=== PATIENT | female | born 1960 | race Caucasian/White ===

== ENCOUNTER 2020-02-02 22:19 | Observation (INO) | payer SELFPAY ==
[2020-02-02 22:21] VITALS: BP 146/96; PULSE 74; RESP 18; TEMP 36.6; O2SAT 95; BMI 29.7
--- NOTE | 2020-02-02 22:31 | XR_ITS ---
WS: [id number] CHEST, 1 view. HISTORY: Chest pain COMPARISON: 08/05/2019 Prior CABG. Hyperinflated lungs. No pneumonia. Normal vasculature. No pleural effusion or pneumothorax. Cardiac size: Normal. Mediastinum/Aorta: Mild atherosclerosis aorta. No osseous abnormality seen. XR/XR chest 1V [id number] IMPRESSION: Partially calcified aorta and prior CABG.
--- NOTE | 2020-02-02 22:32 | ECG_ITS ---
Measurements Intervals [place] Rate: 70 P: 69 GA: 143 QRS: 60 QRSD: 104 T: -32 QT: 428 QTc: 462 SINUS RHYTHM INCOMPLETE RIGHT BUNDLE BRANCH BLOCK [90+ ms QRS DURATION, TERMINAL R IN V1/V2, 40+ ms S IN I/aVL/V4/V5/V6] INFERIOR MYOCARDIAL INFARCTION [40+ ms Q WAVE AND/OR ST/T ABNORMALITY IN II/aVF II/aVF], OF INDETERMINATE AGE INTERPRETATION BASED ON A DEFAULT AGE OF 40 YEARS Compared to ECG 08/05/2019 17:54:16 Sinus bradycardia no longer present Myocardial infarct finding still present Electronically Signed On 02-03-2020 11:47:28 CDT by Marquise Shannon M.D. [id number]
[2020-02-02 23:02] VITALS: RESP 20
[2020-02-02] MEDS: morphine 4 mg/mL SDV 1 mL IVP (23:02)
[2020-02-02] MEDS: ondansetron 2 mg/ML SDV 2 mL 4 MG IVP (23:03)
[2020-02-02] MEDS: nitroglycerin 0.4 mg sublingual Tablet SUBLINGUAL (23:03)
--- NOTE | 2020-02-02 23:04 | ED_ITS ---
HPI - SOB/Dyspnea General: Chief Complaint: Shortness of Breath/Dyspnea Stated Complaint: cp Time Seen by Provider: 02/02/20 22:31 History of Present Illness: HPI Narrative: Ro is a 59-year-old female who comes in complaining of pain in her back and down her left arm with associated shortness of breath. She also has associated nausea with mild flush type feeling but no true diaphoresis. The patient states the symptoms are similar to when she is had a heart attack in the past. She was at home resting in her bed when the symptoms began. The symptoms have been going on for less than an hour in total. She describes the pain as a dull ache. She took 2 nitroglycerin at home with resolution of her symptoms but after a short amount of time the symptoms have returned. The patient denies cough, fever, vomiting, syncope or near syncope. She states any kind of exertion does make her symptoms worse. Associated symptoms: Reports chest pain and nausea; Deny abdominal pain, chest congestion, diaphoresis, dizziness, extremity pain, fever(s), hemoptysis, lightheadedness, orthopnea, palpitations, polydipsia, polyuria, syncope or vomiting Review of Systems Const: Denies: fever(s), chills, body aches, fatigue, malaise, night sweats or diaphoresis Eyes: Denies: change in vision, blurry vision or blind spots ENMT: Denies: throat pain, odynophagia, hoarseness, ear or mastoid pain, ear discharge, change in hearing or nasal discharge Card: Reports: chest pain; Denies: palpitations, irregular heart rhythm, lightheadedness, syncope, pre- syncope, dyspnea on exertion or orthopnea Resp: Reports: dyspnea; Denies: productive cough, non-productive cough, wheezing, hemoptysis or chest congestion GI: Reports: nausea; Denies: abdominal pain, vomiting, hematemesis, coffee ground emesis, heartburn, diarrhea, constipation, GI cramping, hematochezia or melena : Denies: flank pain, dysuria, urinary frequency, urinary urgency, oliguria, urinary incontinence or hematuria Musc: Denies: neck pain, back pain, extremity pain, extremity swelling, joint pain, joint swelling, joint redness, joint warmth or joint stiffness Skin/Breast: Denies: rash, pruritus, erythema, skin tenderness or jaundice Neuro: Denies: headache(s), numbness in extremities, weakness in extremities, sensory changes, lack of coordination, difficulty walking, dizziness, vertigo, confusion or Slurred speech present Endo: Denies: polyuria, polydipsia, tired all the time, cold intolerance, excessive sweating, flushing, hot flashes or heat intolerance Saurabh/Lymph: Denies: easy bruising, easy bleeding, petechiae, purpura or enlarged lymph nodes All/Imm: Denies: urticaria, throat swelling, tongue swelling, facial swelling or acute wheezing PFSH ED PFSH: Medical History Anxiety neurosis ASHD (arteriosclerotic heart disease) Carotid stenosis, bilateral CVA (cerebral vascular accident) HTN (hypertension) Hyperlipidemia Migraine headache Myocardial infarction Surgical History S/P appendectomy S/P CABG (coronary artery bypass graft) Four-vessel bypass June 2018 [facility] This included a left internal mammary to the LAD and single vein graft to the circumflex, right coronary and diagonal branch. 4 weeks later she had a myocardial infarction which involve closure of the graft to the circumflex In September 2018 coronary angiography revealed [place] circumflex occlusion with good collateral blood flow S/P hysterectomy Family History Father Cancer LUNG Other CAD (coronary artery disease) Hypertension Social History Smoking and tobacco status: light tobacco smoker cigarettes [ Other cigarette details: 1 to 2 cigarettes a day ] Alcohol intake: never Substance/Drug Use: never Household members: spouse and family Housing: House Marital status: Physical Exam Const: COMMON NORMALS: no acute distress, patient oriented x3, no limitations, healthy appearing and well nourished EXAM LIMITATIONS: no altered mental status GENERAL APPEARANCE: cooperative, well kempt and well developed HENMT: COMMON NORMALS: normocephalic, atraumatic, hearing grossly normal bilaterally, external ears normal, EAC's normal, Normal external nose present and moist oral mucous membranes HEAD & SCALP: normal to inspection, normocephalic and atraumatic FACE & SINUS: normal facial exam and face symmetric NOSE: Normal external nose present and Normal nares present EXTERNAL EAR: Yes external ears normal EXTERNAL AUDITORY CANAL: EAC's normal MOUTH: Normal oral and palatal mucosa present, lip normal and tongue normal Eye: COMMON NORMALS: Equal, round and reactive pupils present, EOMs intact bilaterally, conjunctivae normal and no scleral icterus GENERAL EYE: appearance normal, both eyes and all related structures ALIGNMENT: Yes alignment normal PERIORBITAL: periorbital findings normal EYELID: eyelids normal CONJUNCTIVA: Yes conjunctivae normal SCLERA: sclerae normal PUPIL: Yes Equal, round and reactive pupils present Neck/C-Spine: COMMON NORMALS: full ROM, no lymphadenopathy, supple, no meningeal signs and no JVD GENERAL: Yes normal visual inspection and Yes trachea midline CERVICAL SPINE: Yes cervical ROM normal Chest: COMMONS NORMALS: normal inspection of the chest and normal palpation of entire chest wall Resp: COMMON NORMALS: normal respiratory effort, No retractions, No use of accessory muscles and clear to auscultation bilaterally EFFORT & INSPECTION: Yes able to speak in complete sentences AUSCULTATION: clear to auscultation bilaterally, no crackles, no rales, no rhonchi and no wheezes Cardio: COMMON NORMALS: no JVD, regular rate, regular rhythm, S1 normal heart sound present, S2 normal heart sound present, No gallops present (Cardio), No clicks present (Cardio), No murmurs present (Cardio) and No rub (Cardio) RATE: regular rate RHYTHM: regular rhythm HEART SOUNDS: S1 normal heart sound present, S2 normal heart sound present, no click, no gallops, no murmurs and no rubs GI: COMMON NORMALS: Soft to palpation, non-tender, No hepatosplenomegaly present and no masses PALPATION: Yes Soft to palpation, No Tenderness to palpation present (GI), No Guarding due to palpation present (GI), No Rigid due to palpation, Yes No hepatosplenomegaly present, No Hernia present, No Palpable mass present and No Pulsatile mass present : COMMON NORMALS: Yes no CVA tenderness BLADDER/KIDNEY EXAM: Yes no CVA tenderness EXTERNAL FEMALE EXAM: No Hernia present Back/Pelvis: COMMON NORMALS: no CVA tenderness, thoracic and lumbar spine normal to inspection, no thoracic nor lumbar tenderness and thoraco-lumbar ROM normal Extremity: COMMON NORMALS: normal to inspection, full ROM, capillary refill normal, no joint enlargement, no clubbing, cyanosis or edema and no calf tenderness Neuro: COMMON NORMALS: patient oriented x3, CN's II-XII intact bilaterally, moves all extremities, no focal motor deficits and no sensory deficits noted MENINGEAL SIGNS: Yes no meningeal signs SPEECH: speech normal Psych: COMMON NORMALS: mental status grossly normal, Normal thought process present, cooperative, normal affect, speech normal and activity/motor behavior normal APPEARANCE: Yes well kempt SPEECH: Yes normal speech THOUGHT PROCESS: Normal thought process present Skin: COMMON NORMALS: no rashes or lesions noted, turgor normal, no jaundice, no petechiae and no mottling GENERAL SKIN EXAM: no rashes or lesions noted and turgor normal Course Vital Signs: Vital signs: Vital Signs Temperature 97.5 F L 02/03/20 02:07 Pulse Rate 53 L 02/03/20 02:07 Respiratory Rate 15 02/03/20 02:07 Blood Pressure 151/88 02/03/20 02:07 Pulse Oximetry 96 02/03/20 02:07 MDM - SOB/Dyspnea MDM Narrative: Medical decision making narrative: The case was reviewed with Dr. Kelly, he agrees to see evaluate the patient for possible admission. Patient is continued to have chest pain despite a recent bypass surgery. Believe she should formally be ruled out and possibly a stress test but at this is not positive other causes of her pain may need to be evaluated. Lab Data: Attestation: I reviewed the patient's lab results. Labs: Lab Results 02/02/20 02/02/20 02/02/20 Range/Units 23:00 23:00 23:00 WBC 8.1 (4.0-10.0) 10^3/ uL RBC 5.25 (4.1-5.3) 10^6/u L Hgb 15.5 H (11.5-15.3) g/dL Hct 47.4 H (37.0-47.0) % MCV 90.3 (81-99) fL MCH 29.5 (28.0-34.0) pg MCHC 32.7 (30.0-36.0) g/dL RDW 12.8 (12.1-15.1) % Plt Count 247 (130-400) 10^3/c mm MPV 10.0 (7.4-10.4) fL Neut % (Auto) 61.7 % Lymph % (Auto) 26.0 % [place] % (Auto) 10.0 % Eos % (Auto) 1.6 % Baso % (Auto) 0.5 % Neut # (Auto) 5.0 (1.8-7.7) 10^3/u L Lymph # (Auto) 2.1 (0.8-4.8) 10^3/u L [place] # (Auto) 0.8 (0.2-0.9) 10^3/u L Eos # (Auto) 0.1 (0.0-0.8) 10^3/u L Baso # (Auto) 0.0 (0.0-0.1) 10^3/u L Nucleated RBC % (a uto) 0 % Nucleated RBCs # 0.0 /100WBC PT 13.20 (10.5-13.3) SECO NDS INR 0.97 (0.8-1.2) Sodium 140 (136-145) mmol/L Potassium 4.1 (3.5-5.1) mmol/L Chloride 101 (98-107) mmol/L Carbon Dioxide 26 (22-29) mmol/L Anion Gap 17.1 (5-19) BUN 15 (6-20) mg/dL Creatinine 1.0 H (0.5-0.9) mg/dL GFR Calculation 56.7 L (90-130) mL/min Glucose 89 (65-115) mg/dL Calculated Osmolal ity 286 (285-295) mOsm/k g Calcium 9.6 (8.5-10.5) mg/dL Magnesium 2.1 (1.7-2.3) mg/dL Total Bilirubin 0.4 (0.15-1.2) mg/dL AST 18 (0-32) U/L ALT 15 (0-33) U/L Alkaline Phosphata se 86 (35-105) IU/L Troponin T Baselin e (0-10) ng/mL NT-Pro-B Natriuret Pep 518 H (0-125) pg/mL Total Protein 7.2 (6.6-8.7) g/dL Albumin 4.4 (3.5-5.2) g/dL Globulin 2.8 (1.3-4.6) g/dL Lipase 48 (13-60) U/L / Range/Units 23:00 WBC (4.0-10.0) 10^3/ uL RBC (4.1-5.3) 10^6/u L Hgb (11.5-15.3) g/dL Hct (37.0-47.0) % MCV (81-99) fL MCH (28.0-34.0) pg MCHC (30.0-36.0) g/dL RDW (12.1-15.1) % Plt Count (130-400) 10^3/c mm MPV (7.4-10.4) fL Neut % (Auto) % Lymph % (Auto) % [place] % (Auto) % Eos % (Auto) % Baso % (Auto) % Neut # (Auto) (1.8-7.7) 10^3/u L Lymph # (Auto) (0.8-4.8) 10^3/u L [place] # (Auto) (0.2-0.9) 10^3/u L Eos # (Auto) (0.0-0.8) 10^3/u L Baso # (Auto) (0.0-0.1) 10^3/u L Nucleated RBC % (a uto) % Nucleated RBCs # /100WBC PT (10.5-13.3) SECO NDS INR (0.8-1.2) Sodium (136-145) mmol/L Potassium (3.5-5.1) mmol/L Chloride (98-107) mmol/L Carbon Dioxide (22-29) mmol/L Anion Gap (5-19) BUN (6-20) mg/dL Creatinine (0.5-0.9) mg/dL GFR Calculation (90-130) mL/min Glucose (65-115) mg/dL Calculated Osmolal ity (285-295) mOsm/k g Calcium (8.5-10.5) mg/dL Magnesium (1.7-2.3) mg/dL Total Bilirubin (0.15-1.2) mg/dL AST (0-32) U/L ALT (0-33) U/L Alkaline Phosphata se (35-105) IU/L Troponin T Baselin e 10 (0-10) ng/mL NT-Pro-B Natriuret Pep (0-125) pg/mL Total Protein (6.6-8.7) g/dL Albumin (3.5-5.2) g/dL Globulin (1.3-4.6) g/dL Lipase (13-60) U/L Imaging Data^: CXR: Attestation: I personally reviewed and interpreted this imaging study as follows: My impression: No acute cardiopulmonary findings. EKG Data^: EKG 1: Attestation: I personally reviewed and interpreted this EKG as follows: EKG Interpretation Date: 02/02/20 EKG interpretation time: 22:29 Interpretation: Normal sinus rhythm at 70 beats a minute, Q waves inferiorly, subtle ST segment depression in 2, 3, aVF and V6. Incomplete right bundle branch block. Normal axis. Findings are similar to previous. Discharge Plan Discharge Patient Disposition: Placed in Observation Admit Provider: Melva Krishnan Clinical Impression: Chest pain Qualifiers: Chest pain type: unspecified Qualified Code(s): R07.9 - Chest pain, unspecified Condition: Stable Referrals: Shanti Foster, BEHAVIORAL HEALTH ASSISTANT, [place] [Primary Care Provider] - Discharge Date/Time: 02/03/20 02:05 Coding Level of Care Code ED Wet Crown Blocking Operator for Chg Fwd Exam Comprehensive
[2020-02-02 23:06] LABS: Basophils % 0.5 %; Eosinophils # 0.1 10^3/uL (0.0-0.8); Eosinophils % 1.6 %; Hematocrit 47.4 % (37.0-47.0); Hemoglobin 15.5 g/dL (11.5-15.3); Lymphocytes # 2.1 10^3/uL (0.8-4.8); Mean Corpuscular HGB Conc 32.7 g/dL (30.0-36.0); Mean Corpuscular Hemoglobin 29.5 pg (28.0-34.0); Mean Corpuscular Volume 90.3 fL (81-99); Monocytes # 0.8 10^3/uL (0.2-0.9); Neutrophils % 61.7 %; Nucleated Red Blood Cells % 0 %; Platelet Count 247 10^3/cmm (130-400); Red Blood Count 5.25 10^6/uL (4.1-5.3); Red Cell Distribution Width 12.8 % (12.1-15.1); White Blood Count 8.1 10^3/uL (4.0-10.0)
[2020-02-02 23:23] LABS: INR 0.97 (0.8-1.2)
[2020-02-02 23:28] LABS: Troponin(5th) Baseline 10 ng/mL (0-10)
[2020-02-02 23:29] VITALS: BP 115/71; PULSE 56; RESP 20; O2SAT 96
[2020-02-02 23:40] VITALS: BP 108/69; PULSE 52; RESP 18
[2020-02-03] VITALS (12 sets, daily range): BP systolic 103–151; BP diastolic 60–88; PULSE 42–82; RESP 12–20; TEMP 36.4–36.7; O2SAT 91–96
[2020-02-03 00:11] LABS: Alanine Aminotransferase 15 U/L (0-33); Albumin Level 4.4 g/dL (3.5-5.2); Alkaline Phosphatase 86 IU/L (35-105); Anion Gap 17.1 (5-19); Aspartate Amino Transferase 18 U/L (0-32); Blood Urea Nitrogen 15 mg/dL (6-20); Calcium 9.6 mg/dL (8.5-10.5); Carbon Dioxide 26 mmol/L (22-29); Chloride 101 mmol/L (98-107); Globulin 2.8 g/dL (1.3-4.6); Glomerular Filtration Rate 56.7 mL/min (90-130); Glucose 89 mg/dL (65-115); Lipase 48 U/L (13-60); Magnesium 2.1 mg/dL (1.7-2.3); NT Pro B Type Natriuretic Pept 518 pg/mL (0-125); Osmolality Calculated 286 mOsm/kg (285-295); Potassium 4.1 mmol/L (3.5-5.1); Sodium 140 mmol/L (136-145); Total Bilirubin 0.4 mg/dL (0.15-1.2); Total Protein 7.2 g/dL (6.6-8.7)
--- NOTE | 2020-02-03 01:01 | P.HP_ITS ---
Providers/Chief Complaint Primary Care Provider: Shanti Foster Chief Complaint: cp History of Present Illness Ro Lopez is a 59 year old female who carries multiple comorbid conditions, coronary artery disease, CABG four-vessel disease, with subsequent occlusion to circumflex graft with good collateral blood supply preserved ejection fraction coming in today with chief complaint of back pain. Patient is stating that after her dinner she went to bed, within 2 hours she started experiencing back pain which she experienced when she had CABG done, her chest pain persisted until she received 2 doses of nitroglycerin and 1 dose of morphine in the ER, she did experience nausea but no vomiting, she is endorsing movement of this pain towards her left shoulder. She is moderately active at home, smoking 1 to 2 cigarettes a day, she is stating that she stopped taking Xanax for her panic attacks. She has been compliant with her medications. She has seen Dr. Shannon in December via [facility]. Dr. Shannon prescribed Xanax for her anxiety. Diagnosis in the ER revealed normal hemodynamics, however heart rate is less than 68 rate is ranging between 50-55, blood pressure is normal, she is awake alert oriented x3, chest pain-free EKG did not show any new changes however T wave inversions seen in inferior leads Troponin not significantly high Review of Systems Const: Denies: fever(s) Eyes: Denies: change in vision ENMT: Denies: throat pain Card: Reports: chest pain; Denies: irregular heart rhythm, swelling of feet/ankles, syncope, dyspnea on exertion or orthopnea Resp: Reports: dyspnea GI: Denies: abdominal pain : Denies: flank pain Musc: Reports: back pain and joint pain; Denies: neck pain Skin/Breast: Denies: rash Neuro: Denies: headache(s) Psych: Reports: anxiety, panic attacks and irritability Endo: Denies: polyuria Saurabh/Lymph: Denies: easy bruising All/Imm: Denies: urticaria Medications/Allergies Home Medications Medication Instructions Recorded Confirmed Last Taken Type amlodipine 2.5 mg tablet 2.5 mg PO BID 11/17/19 12/22/19 Unknown History atorvastatin 40 mg tablet 40 mg PO DAILY 11/17/19 12/22/19 Unknown History fluticasone propionate 50 1 spray INTRANASAL DAILY 11/17/19 12/22/19 Unknown History mcg/actuation nasal spray,suspension metoprolol succinate 25 mg 25 mg PO DAILY 11/17/19 12/22/19 Unknown History tablet,extended release 24 hr nitroglycerin 0.4 mg sublingual 0.4 mg SUBLINGUAL Q5M PRN 11/17/19 12/22/19 Unknown History tablet trazodone 100 mg tablet 100 mg PO DAILY 11/17/19 12/22/19 Unknown History alprazolam 0.25 mg tablet 0.25 mg PO BID PRN #10 tab 12/22/19 12/22/19 Unknown Rx clopidogrel 75 mg tablet 75 mg PO DAILY 90 Days #90 tab 01/20/20 Unknown Rx Allergies Allergy/AdvReac Type Severity Reaction Status Date / Time Cephalosporins Allergy Unknown Unknown Verified 12/22/19 08:15 hydromorphone [From Dilaudid] Allergy Unknown Unknown Verified 12/22/19 08:15 Penicillins Allergy Unknown Unknown Verified 12/22/19 08:15 Sulfa (Sulfonamide Allergy Unknown Unknown Verified 12/22/19 08:15 Antibiotics) tramadol Allergy Unknown Unknown Verified 12/22/19 08:15 PFSH Acute PFSH: Medical History Anxiety neurosis ASHD (arteriosclerotic heart disease) Carotid stenosis, bilateral CVA (cerebral vascular accident) HTN (hypertension) Hyperlipidemia Migraine headache Myocardial infarction Surgical History S/P appendectomy S/P CABG (coronary artery bypass graft) Four-vessel bypass June 2018 [facility] This included a left internal mammary to the LAD and single vein graft to the circumflex, right coronary and diagonal branch. 4 weeks later she had a myocardial infarction which involve closure of the graft to the circumflex In September 2018 coronary angiography revealed [place] circumflex occlusion with good collateral blood flow S/P hysterectomy Family History Father Cancer LUNG Other CAD (coronary artery disease) Hypertension Social History Smoking and tobacco status: light tobacco smoker cigarettes [ Other cigarette details: 1 to 2 cigarettes a day ] Alcohol intake: never Substance/Drug Use: never Household members: spouse and family Housing: House Marital status: Vitals/I&O/Wt Last Vital Signs Temp 97.8 F 02/02/20 22:21 Pulse 52 L 02/02/20 23:40 Resp 18 02/02/20 23:40 BP 108/69 02/02/20 23:40 Pulse Ox 96 02/02/20 23:29 Weight last 48 hrs Weight 86.183 kg Physical Exam Narrative: EXAM NARRATIVE: Head to toe examination Patient lying comfortably in her bed Heart rate 55, normal hemodynamics No active chest pain S1-S2 no active heart failure Abdomen soft nontender nondistended Neurologically nonfocal exam Skin does not show any sign ischemia gangrene ulcer No lower extremity edema No active respiratory distress EOMI, PERRLA Alert oriented x3 GCS 15 Appropriate mood and affect She does have a tender point in paraspinal area in thoracic region Data : 02/02/20 23:00 02/02/20 23:00 A&P Assessment and plan (1) Atypical chest pain: Status: Acute (2) Smoker: Status: Acute (3) Carotid stenosis, bilateral: Status: Acute (4) S/P CABG (coronary artery bypass graft): Status: Acute Additional A&P Information Atypical chest pain Established coronary disease with four-vessel CABG with subsequent occlusion of circumflex graft with good collateral blood supply Troponin not significantly high, currently chest pain-free, EKG does not show any new changes, T wave inversions seen in inferior and lateral leads in previous EKG as well, she is describing paraspinal tenderness in thoracic region We will get Lexiscan stress test in the morning Sinus bradycardia Hold beta-chanell No active hemodynamic instability Bilateral carotid stenosis Follows up with Dr. Shannon Multiple TIAs in the past No active neurological deficit Anxiety/panic attack Would continue her alprazolam at this time Full code VTE prophylaxis: Lovenox N.p.o. after midnight Attestations Medical Necessity Statement*: Anticipating discharge in less than 48 hours currently need Lexiscan stress test to rule out new ischemic changes Time Spent in Patient Care: 45 Coding Level of Care Code Acute Specialty Therapist for Chg Fwd Diagnoses Atypical chest pain R07.89 Smoker F17.200 Carotid stenosis, bilateral I65.23 S/P CABG (coronary artery bypass graft) Z95.1
[2020-02-03 01:27] LABS: Troponin 5 2HR 8.66 ng/mL (0-10)
[2020-02-03 01:28] LABS: Troponin 5 2HR Delta -1.34 ABS# (0-10)
[2020-02-03] MEDS: nitroglycerin 1 gm/inch oint Pkt 1 INCH TOPICAL (01:51)
--- NOTE | 2020-02-03 02:07 | NMCV_ITS ---
NM monica perf SPECT r/s* [id number] Ro Lopez Age: 59 Gender: F : 1960 Exam Date: 02/03/2020 10:58 Ordering Phys: Melva Krishnan MD Technologist: YUMIKO Mari Exam [facility]: [facility] Indications: ATYPICAL CHEST PAIN STRESS TEST Please see separate stress test report in [facility] for full findings IMAGE PROTOCOL Rest/Stress 1 Lexiscan Day Radiopharmaceutical Dose (mCi) Administration Site Administered by Rest: Tc-99m 10.8 IV YUMIKO Mari Sestamibi Stress:Tc-99m 32.9 IV YUMIKO English Sestamibi Rest: 03-Feb-2020 60 Discovery 630 Stress: 03-Feb-2020 30 Discovery 630 0.4mg Lexiscan. Supine position only as patient was unable to lay prone. SPECT RESULTS Technical Quality: Good Raw Data Analysis: Normal Image Corrections: No attenuation or motion correction applied Summed Stress Score: 13 Summed Rest Score: 15 Summed Difference Score: 1 PERFUSION FINDINGS Large area of fixed perfusion defect noted in basal to distal inferior and basal to mid inferolateral wall suggestive of old myocardial infarction without significant reversibility. FUNCTIONAL RESULTS (calculated via Gated SPECT) Stress Image LV EF (%): 54 Stress EDV (mL):105 TID: 0.94 Stress ESV (mL):48 Rest Image LV EF (%): 54 FUNCTIONAL FINDINGS: Inferior and inferoapical wall hypokinesis IMPRESSIONS Large area of old myocardial infarction versus scarring noted in basal to distal inferior and basal to mid inferiolateral wall suggestive of possible lesion in either dominant RCA or circumflex. There was no ischemia detected on this study. Please note that patient was not able to perform the prone images therefore cannot rule out artifact. EKG segment will be documented separately. Melva Reddy MD (Electronically Signed) Final Date: 03 Feb 2020 13:08 S
--- NOTE | 2020-02-03 02:25 | PC.NURSE ---
Patient arrived from ER via wheelchair and ambulated to the bed with no assistance. Patient was placed on telemetry. Vitals obtained and oriented to the room. Patient has call light within reach and AxO x4. Will continue to monitor.
[2020-02-03 03:19] LABS: Thyroid Stimulating Hormone 1.08 uIU/mL (0.27-4.20)
--- NOTE | 2020-02-03 06:00 | ECG_ITS ---
NAME OF STUDY: LEXISCAN SESTAMIBI STRESS TEST INDICATION: Chest Pain LEXISCAN STRESS TEST ORDERING PHYSICIAN: Hospitalist CLINICAL INFORMATION: Chest pain INTERPRETATION: 1. The patient was brought to the laboratory where Lexiscan was infused over 20 seconds. The resting blood pressure was 135/67. Maximum blood pressure was 138/87. The resting heart rate was 50 beats per minute. The maximum heart rate is 85 beats per minute. 2. The baseline electrocardiogram reveals sinus rhythm with a right bundle branch block, nonspecific ST wave changes and T wave inversions inferiorly 3. With Lexiscan infusion, there were no ST segment changes to suggest ischemia. 4. The patient experienced no symptoms or arrhythmias during the examination. CONCLUSION: 1. Unremarkable Lexiscan infusion. 2. Nuclear imaging to follow. Electronically Signed On 02-04-2020 15:50:40 CDT by Marquise Shannon M.D. [email or web address]
[2020-02-03] MEDS: pneumococcal (23 valent) SDV 0.5 mL IM (08:52)
[2020-02-03] MEDS: clopidogrel 75 mg Tablet PO (08:52)
[2020-02-03] MEDS: atorvastatin 40 mg Tablet PO (08:52)
--- NOTE | 2020-02-03 11:25 | PC.CHAP ---
Pastoral Care Encounter/Spiritual Assessment Type of Contact [] Declined casino change attendant visit [] Patient/Family/Request visit [] Outpatient visit [] Follow-up visit [] Physician referral [] Code/Alert [x] Routine visit [] Staff referral [] Actively dying [] Patient sleeping [] Family support [] [] Out of room [] Palliative care [] [] Receiving care in room [] Pre-surgical visit [] Trauma [] Long length of stay [] ICU visit [] Other: Relational/Emotional Strength [x] Patient feels connected with others/family/visitors/staff [] Distress [] Loneliness/isolation [] Abandonment Spirituality of Patient [x] Person of Lashae [x] Attends Restorationism of their Lashae [x] Believes in Prayer [x] Reads Bible or Caodaism materials [] There are Spiritual issues to be addressed Variety Performer Interventions [x] Prayer [x] Active listening [x] Non-anxious presence [x] Spiritual/emotional support [] Crisis/trauma care [x] Spiritual counseling [] Bereavement support [] Provided bereavement packet [] Provided Bible/devotional materials [] Provided toy/stuffed animal, coloring book to patient or family member [] Provided Communion [] Anointing/Harviell [] Salvation [x] Completed spiritual assessment [] Other: Impact on Illness or Injury [] Angry [] Fearful [] Anxious [] Often cries [] Exhaustion [] Unable to work [] Unable to attend muslim [] Unable to walk/stand [] Unable to read [] Unable to drive [] Unable to eat/drink [] Unable to sleep [] Unable to be with family [] Patient intubated [x] Other: n/a Summary Time spent with patient 5 minutes
[2020-02-03] MEDS: regadenoson 0.4 Mg/5 ml Syringe IVP (11:51)
[2020-02-03] MEDS: aminophylline 25 mg/mL SDV 10 mL IVP (11:56)
[2020-02-03] MEDS: morphine 4 mg/mL SDV 1 mL 1 MG IVP (12:01)
--- NOTE | 2020-02-03 14:44 | PM.DCS ---
Discharge Providers Date of Admission: 02/03/20 00:30 Date of Discharge: February 03, 2020 Attending Provider at Admission: Melva Krishnan MD Attending Provider at Discharge: Dominik Watson MD Primary Care Provider: Shanti Foster Diagnoses at Discharge Discharge Diagnosis (1) Atypical chest pain: Status: Acute (2) Smoker: Status: Acute (3) Carotid stenosis, bilateral: Status: Acute (4) S/P CABG (coronary artery bypass graft): Status: Acute Problem details: Four-vessel bypass June 2018 [facility] This included a left internal mammary to the LAD and single vein graft to the circumflex, right coronary and diagonal branch. 4 weeks later she had a myocardial infarction which involve closure of the graft to the circumflex In September [address] Shannon revealed seneca circumflex occlusion with good collateral blood flow Reason for Visit Reason for Visit: Reason For Visit: atypical chest pain Hospital Course Discharge Summary: This is a 59-year-old female with a past medical history of hypertension, hyperlipidemia, CABG x4, history of coronary angiogram in 2019 which showed the seneca circumflex occlusion with good collateral blood flow, normal normal ejection fraction, who presents [facility] with complaints of atypical chest pain. Patient had complaints of pain between her shoulder blades, which she says is typical for her chest pain for which she has been hospitalized multiple times in the past, she did have a stress test in June 2019 which showed low probability of obstructive CAD, and an echocardiogram which showed a ejection fraction of 60%. During this hospital admission, patient's EKG showed T wave inversions in the inferior leads, remained relatively symptom-free, she did have reproducible anterior chest wall pain, troponins 6-hour 8.6, delta of -1.4; patient had a nuclear stress test which showed large area of old myocardial infarction versus scarring noted in basal to distal inferior and basal to mid inferiolateral wall suggestive of possible lesion in either dominant RCA or circumflex, There was no ischemia detected on this study. I went over the case with Dr. Yang, he advised trying either Ranexa or Imdur, but patient stated that she was hypotensive and lightheaded in the past on trials of these medications which precluded their use. In addition patient was found to have sinus bradycardia during her hospital admission, heart rates 40s to 50s, sinus rhythm which precluded us resuming her home metoprolol 25 mg daily. Thus after discussion with cardiology, patient was discharged on her home medications, metoprolol was held, she was discharged on a 30-day event monitor, with a close follow-up with Dr. Shannon in 1 week. Patient was advised if she were to have recurrent chest pain to call 911 and come to the emergency room. Physical Exam Const: COMMON NORMALS: no acute distress and patient oriented x3 HENMT: COMMON NORMALS: normocephalic HEAD & SCALP: normocephalic Neck/C-Spine: COMMON NORMALS: no JVD Resp: COMMON NORMALS: normal respiratory effort, No retractions, No use of accessory muscles and clear to auscultation bilaterally AUSCULTATION: clear to auscultation bilaterally Cardio: COMMON NORMALS: no JVD, regular rate, regular rhythm, S1 normal heart sound present and S2 normal heart sound present RATE: regular rate RHYTHM: regular rhythm HEART SOUNDS: S1 normal heart sound present and S2 normal heart sound present GI: COMMON NORMALS: Normal to inspection, nondistended, normoactive bowel sounds present, Soft to palpation, non-tender, No hepatosplenomegaly present, no masses and no bruits PALPATION: Yes Soft to palpation and Yes No hepatosplenomegaly present Extremity: COMMON NORMALS: capillary refill normal, no clubbing, cyanosis or edema, no calf tenderness and no pedal edema Neuro: COMMON NORMALS: patient oriented x3 Psych: COMMON NORMALS: mental status grossly normal Discharge Data Data Completed and Pending: Completed Studies During Hospitalization Category Date Time Status XR chest 1V 09098 Stat Exams 02/02/20 22:31 Completed NM monica perf SPECT r/s* 22015 Routin e Nuc Med 02/03/20 02:07 Completed Pending at discharge Category Date Time Status Sestamibi Stress Test Request Aditya ne Exams 02/04/20 06:00 Ordered Labs from last 24 hours 02/03/20 02/03/20 02/03/20 04:11 00:40 00:40 WBC RBC Hgb Hct MCV MCH MCHC RDW Plt Count MPV Neut % (Auto) Lymph % (Auto) [place] % (Auto) Eos % (Auto) Baso % (Auto) Neut # (Auto) Lymph # (Auto) [place] # (Auto) Eos # (Auto) Baso # (Auto) Nucleated RBC % (a uto) Nucleated RBCs # PT INR Sodium Potassium Chloride Carbon Dioxide Anion Gap BUN Creatinine GFR Calculation Glucose Calculated Osmolal ity Calcium Magnesium Total Bilirubin AST ALT Alkaline Phosphata se Troponin I 6 Hour 8.60 Troponin I Hi Sens Del -1.40 L Troponin T Baselin e Troponin T 120 Min [place] 8.66 Delta Troponin T -1.34 L NT-Pro-B Natriuret Pep Total Protein Albumin Globulin Lipase TSH 1.08 02/02/20 02/02/20 02/02/20 23:00 23:00 23:00 WBC RBC Hgb Hct MCV MCH MCHC RDW Plt Count MPV Neut % (Auto) Lymph % (Auto) [place] % (Auto) Eos % (Auto) Baso % (Auto) Neut # (Auto) Lymph # (Auto) [place] # (Auto) Eos # (Auto) Baso # (Auto) Nucleated RBC % (a uto) Nucleated RBCs # PT 13.20 INR 0.97 Sodium 140 Potassium 4.1 Chloride 101 Carbon Dioxide 26 Anion Gap 17.1 BUN 15 Creatinine 1.0 H GFR Calculation 56.7 L Glucose 89 Calculated Osmolal ity 286 Calcium 9.6 Magnesium 2.1 Total Bilirubin 0.4 AST 18 ALT 15 Alkaline Phosphata se 86 Troponin I 6 Hour Troponin I Hi Sens Del Troponin T Baselin e 10 Troponin T 120 Min [place] Delta Troponin T NT-Pro-B Natriuret Pep 518 H Total Protein 7.2 Albumin 4.4 Globulin 2.8 Lipase 48 TSH 02/02/20 23:00 WBC 8.1 RBC 5.25 Hgb 15.5 H Hct 47.4 H MCV 90.3 MCH 29.5 MCHC 32.7 RDW 12.8 Plt Count 247 MPV 10.0 Neut % (Auto) 61.7 Lymph % (Auto) 26.0 [place] % (Auto) 10.0 Eos % (Auto) 1.6 Baso % (Auto) 0.5 Neut # (Auto) 5.0 Lymph # (Auto) 2.1 [place] # (Auto) 0.8 Eos # (Auto) 0.1 Baso # (Auto) 0.0 Nucleated RBC % (a uto) 0 Nucleated RBCs # 0.0 PT INR Sodium Potassium Chloride Carbon Dioxide Anion Gap BUN Creatinine GFR Calculation Glucose Calculated Osmolal ity Calcium Magnesium Total Bilirubin AST ALT Alkaline Phosphata se Troponin I 6 Hour Troponin I Hi Sens Del Troponin T Baselin e Troponin T 120 Min [place] Delta Troponin T NT-Pro-B Natriuret Pep Total Protein Albumin Globulin Lipase TSH Vitals: Last Vital Signs Temp 97.8 F 02/03/20 12:00 Pulse 56 L 02/03/20 14:00 Resp 16 02/03/20 14:00 BP 116/60 02/03/20 14:00 Pulse Ox 95 02/03/20 12:00 Discharge Plan Discharge Patient Disposition: Home, Self-Care Condition: Stable Prescriptions: Continued trazodone 100 mg tablet 100 mg PO DAILY RF: 0 amlodipine 2.5 mg tablet 2.5 mg PO BID RF: 0 atorvastatin 40 mg tablet 40 mg PO DAILY RF: 0 fluticasone propionate [Allergy Relief (fluticasone)] 50 mcg/actuation spray,suspension 1 spray INTRANASAL DAILY RF: 0 nitroglycerin [Nitrostat] 0.4 mg tablet, sublingual 0.4 mg SUBLINGUAL Q5M PRNRF: 0 alprazolam 0.25 mg tablet 0.25 mg PO BID PRN (Reason: anxiety) Qty: 10 RF: 1 clopidogrel 75 mg tablet 75 mg PO DAILY 90 Days Qty: 90 RF: 3 Held metoprolol succinate 25 mg tablet extended release 24 hr 25 mg PO DAILY RF: 0 Hold Instructions: Resume on 02/21/20. until seen by cardiology Discharge Orders: Discharge Order (Routine); Ordered 02/03/20 Ordered By: Dominik Watson Other Ambulatory Orders: [place] 30 day event monitor (Routine) Timeframe: 1 Day Facility: [facility] - Location: Cardiac Diagnostic Laboratory Ordered By: Dominik Watson Referrals: Shanti Foster FNP, TANYA [Primary Care Provider] - Marquise Shannon MD [Physician] - 1 week Discharge Diet: Cardiac Discharge Activity: Resume usual activity Patient Instructions: Chest Pain (DC), How to Stop Smoking (DC), Chest Pain Stoplight Activity Restrictions/Additional Instructions: -If you have recurrent chest pain please come back to the emergency room -If you feel lightheaded or dizzy please come back to emergency room -Please follow-up with Dr. Shannon in 1 week -Please wear event monitor as prescribed -I have held your metoprolol given your low heart rate -If you experience fast heart rate, please call Dr. Shannon's office Discharge Attestations Time Spent in Discharge Care*: less than 30 min Quality Metrics Clinical Quality Measures During this hospital stay, did patient experience: None Coding Level of Care Code Acute Livestock Feeder for Chg Fwd Diagnoses Atypical chest pain R07.89 Smoker F17.200 Carotid stenosis, bilateral I65.23 S/P CABG (coronary artery bypass graft) Z95.1
--- NOTE | 2020-02-03 16:26 | PC.NURSE ---
Discharge instructions given. pt verbalized an understanding. questions answered at this time. iv removed, tip intact, pt tolerated well.
--- NOTE | 2020-02-03 19:16 | PC.NURSE ---
3 mg Morphine wasted with Analy Mattson RN and Chrissy Arroyo RN.
--- NOTE | 2020-02-03 20:01 | PC.NURSE ---
pt discharge out of system before 3 mg morphine could be wasted. it was then wasted with night charge nurse, Leona Arroyo RN but could not be wasted in [facility].
== END 2020-02-03 16:25 | disposition home or self-care (01) ==
LOC: ER 02-03 00:40 → CSU 02-03 01:09
PROVIDERS: Emergency Medicine; Admitting Provider Internal Medicine; PCP Chiropractor Orthopedic; Visit Provider Family Medicine
DX: I45.10 Unspecified right bundle-branch block (principal); R07.89 Other chest pain; F17.210 Nicotine dependence, cigarettes, uncomplicated; I65.23 Occlusion and stenosis of bilateral carotid arteries; Z95.1 Presence of aortocoronary bypass graft; F41.9 Anxiety disorder, unspecified; I25.10 Atherosclerotic heart disease of native coronary artery without angina pectoris; I10 Essential (primary) hypertension; E78.5 Hyperlipidemia, unspecified; I25.2 Old myocardial infarction
CPT/HCPCS: 12345; 36415; 71045; 78452; 80053; 83690; 83735; 83880; 84443; 84484; 85025; 85610; 90471; 90732; 93005; 93017; 96374; 96375; 99283; 99285; A9500; G0378; J0280; J2270; J2405; J2785

== ENCOUNTER 2020-03-13 13:17 | Emergency (ER) | payer SELFPAY ==
[2020-03-13 13:18] VITALS: BP 152/91; PULSE 64; RESP 18; TEMP 36.9; O2SAT 96; BMI 29.8
--- NOTE | 2020-03-13 13:21 | XRR_ITS ---
PROCEDURE INFORMATION: Exam: XR Chest, 1 View Exam date and time: 03/13/2020 3:48 PM Age: 60 years old Clinical indication: Chest pain; Type not specified; Prior surgery; Additional info: Cp TECHNIQUE: Imaging protocol: XR of the chest Views: 1 view. COMPARISON: CR XR chest 1V [id number] 02/02/2020 10:41 PM FINDINGS: Lungs: Unremarkable. No consolidation. Pleural space: Unremarkable. No pleural effusion. No pneumothorax. Heart/Mediastinum: Unremarkable. No cardiomegaly. Bones/joints: Metallic sternotomy wires are in place. XR/XR chest 1V portable [id number] IMPRESSION: No acute findings. Metallic sternotomy wires are in place
--- NOTE | 2020-03-13 13:21 | ECG_ITS ---
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 Measurements Intervals [place] Rate: 64 P: 62 RI: 156 QRS: 58 QRSD: 107 T: -4 QT: 420 QTc: 436 Interpretive Statements SINUS RHYTHM POSSIBLE LEFT ATRIAL ENLARGEMENT [-0.1mV P WAVE IN V1/V2] INCOMPLETE RIGHT BUNDLE BRANCH BLOCK [90+ ms QRS DURATION, TERMINAL R IN V1/V2, 40+ ms S IN I/aVL/V4/V5/V6] PROBABLE LATERAL MYOCARDIAL INFARCTION , OF INDETERMINATE AGE [35 ms Q WAVE IN I/aVL/V5/V6] INFERIOR MYOCARDIAL INFARCTION , OF INDETERMINATE AGE [40+ ms Q WAVE AND/OR ST/T ABNORMALITY IN II/aVF] Compared to ECG 02/02/2020 22:29:15 No significant changes Electronically Signed On 03-13-2020 21:43:15 CDT by Leonel Casillas M.D. [id number]
--- NOTE | 2020-03-13 13:26 | CT_ITS ---
WS: [id number] CT HEAD NONCONTRAST HISTORY: confusion TECHNIQUE: Contiguous axial imaging performed through the brain in 2.5 mm imaging. Bone and soft tiss ue windows. Sagittal and coronal reformats reviewed. All CT scans at [facility] use at ast one of these dose optimization techniques: automated exposure control; mA and/or kV adjustment pe r patient size (includes targeted exams where dose is matched to clinical indication); or iterative r econstruction. DLP: 741.03 mGy.cm COMPARISON: 07/06/2019 No acute intracranial hemorrhage, midline shift or mass effect. Mild atrophy bilaterally. Atrophy is predominantly involving the frontal and temporal lobes and is sy mmetric. Minimal chronic microvascular ischemic changes. No prior infarcts. Ventricles: Normal size with no hydrocephalus. Paranasal sinuses: Mucoperiosteal thickening in the LEFT sphenoid sinus. Mastoid air cells: Well pneumatized. Calvarium and scalp: Skull is intact with no soft tissue edema or swelling. CT/CT head wo con* [id number] IMPRESSION: 1. Mild bilateral frontotemporal atrophy is similar to the prior study. 2. No acute intracranial hemorrhage or edema.
--- NOTE | 2020-03-13 13:27 | W.ED.CHESTPA ---
HPI - Chest Pain General: Chief Complaint: Chest Pain Stated Complaint: CHEST PAIN Time Seen by Provider: 03/13/20 13:22 Source: patient and EMS Mode of arrival: EMS Limitations: no limitations History of Present Illness: HPI narrative: 60-year-old female states she became upset this morning. She states he had been started having some chest pain along with palpitations. Patient states that she felt her blood pressure was high and started smelling gas. She states she is also had some slight confusion. She states her symptoms are improving currently but still has a sharp pain in the center of her chest she rates a 4-10. She states she felt like she could not get a deep breath earlier. MD complaint: chest pain Associated symptoms: Deny abdominal pain, fever(s), nausea or vomiting Review of Systems Const: Denies: fever(s), chills, body aches or change in appetite Eyes: Denies: blurry vision or eye discomfort ENMT: Denies: throat pain or dental pain Card: Reports: chest pain GI: Denies: abdominal pain, nausea, vomiting or diarrhea : Denies: dysuria Musc: Denies: neck pain or back pain Skin/Breast: Denies: rash Neuro: Denies: headache(s) Psych: Denies: depression Saurabh/Lymph: Denies: easy bruising All/Imm: Denies: urticaria PFSH ED PFSH: Medical History Anxiety neurosis ASHD (arteriosclerotic heart disease) Carotid stenosis, bilateral 16-40% left stenosis, last imaged 07/06/2019 CKD (chronic kidney disease) CVA (cerebral vascular accident) ANALISA (generalized anxiety disorder) HTN (hypertension) intolerant of carvedilol Hyperlipidemia Insomnia Migraine headache Myocardial infarction Surgical History S/P appendectomy S/P CABG (coronary artery bypass graft) Four-vessel bypass June 2018 [facility] This included a left internal mammary to the LAD and single vein graft to the circumflex, right coronary and diagonal branch. 4 weeks later she had a myocardial infarction which involve closure of the graft to the circumflex In September [address] Shannon revealed knik circumflex occlusion with good collateral blood flow S/P hysterectomy Family History Father Cancer LUNG Other CAD (coronary artery disease) Hypertension Social History Smoking and tobacco status: light tobacco smoker cigarettes [ Other cigarette details: 1 to 2 cigarettes a day ] Alcohol intake: never Household members: spouse and family Housing: House Marital status: Physical Exam Const: COMMON NORMALS: no acute distress, patient oriented x3 and healthy appearing HENMT: COMMON NORMALS: normocephalic and atraumatic HEAD & SCALP: normocephalic and atraumatic Eye: COMMON NORMALS: Equal, round and reactive pupils present and EOMs intact bilaterally PUPIL: Yes Equal, round and reactive pupils present Neck/C-Spine: COMMON NORMALS: full ROM and supple Chest: COMMONS NORMALS: normal inspection of the chest and normal palpation of entire chest wall Resp: COMMON NORMALS: normal respiratory effort, No retractions, No use of accessory muscles and clear to auscultation bilaterally AUSCULTATION: clear to auscultation bilaterally Cardio: COMMON NORMALS: regular rate, regular rhythm and No murmurs present (Cardio) RATE: regular rate RHYTHM: regular rhythm GI: COMMON NORMALS: Normal to inspection, nondistended, normoactive bowel sounds present, Soft to palpation, non-tender and no masses PALPATION: Yes Soft to palpation Extremity: COMMON NORMALS: normal to inspection and full ROM Neuro: COMMON NORMALS: patient oriented x3, moves all extremities and no focal motor deficits Psych: COMMON NORMALS: mental status grossly normal, Normal thought process present and cooperative THOUGHT PROCESS: Normal thought process present Skin: COMMON NORMALS: no rashes or lesions noted and no wounds GENERAL SKIN EXAM: no rashes or lesions noted Course Vital Signs: Vital signs: Vital Signs Temperature 98.4 F 03/13/20 13:18 Pulse Rate 59 L 03/13/20 16:29 Respiratory Rate 18 03/13/20 16:29 Blood Pressure 154/100 03/13/20 16:29 Pulse Oximetry 97 03/13/20 16:29 MDM - Chest Pain MDM Narrative: Medical decision making narrative: Patient presents with chest pain that is atypical in nature. Patient's initial and repeat troponins are normal. Patient's pain is improved here. Head CT is normal as well. She had a stress test done 1 month ago that was negative. She is to follow-up with her traffic controller cable in 3 to 5 days return to ER if worsening. She understands and agrees to the plan. Lab Data: Labs: Lab Results 03/13/20 03/13/20 03/13/20 Range/Units 12:33 12:33 12:33 WBC Cancelled Corrected WBC Cancelled RBC Cancelled Hgb Cancelled Hct Cancelled MCV Cancelled MCH Cancelled MCHC Cancelled RDW Cancelled Plt Count Cancelled MPV Cancelled Gran % Cancelled Neut % (Auto) Cancelled Lymph % (Auto) Cancelled [place] % (Auto) Cancelled Eos % (Auto) Cancelled Baso % (Auto) Cancelled Neut # (Auto) Cancelled Lymph # (Auto) Cancelled [place] # (Auto) Cancelled Eos # (Auto) Cancelled Baso # (Auto) Cancelled Absolute Gran (aut o) Cancelled Nucleated RBC % (a uto) Cancelled Nucleated RBCs # Cancelled Sodium 141 (136-145) mmol/L Potassium 3.9 (3.5-5.1) mmol/L Chloride 103 (98-107) mmol/L Carbon Dioxide 22 (22-29) mmol/L Anion Gap 19.9 H (5-19) BUN 10 (8-23) mg/dL Creatinine 0.9 (0.5-0.9) mg/dL GFR Calculation 63.9 L (90-130) mL/min Glucose 89 (65-115) mg/dL Calculated Osmolal ity 287 (285-295) mOsm/k g Calcium 10.4 (8.5-10.5) mg/dL Total Bilirubin 0.8 (0.15-1.2) mg/dL AST 25 (0-32) U/L ALT 16 (0-33) U/L Alkaline Phosphata se 97 (35-105) IU/L Troponin T Baselin e 10 (0-10) ng/L Troponin T 120 Min [place] (0-10) ng/L Delta Troponin T (0-10) ABS# Total Protein 8.1 (6.6-8.7) g/dL Albumin 4.7 (3.5-5.2) g/dL Globulin 3.4 (1.3-4.6) g/dL 03/13/20 03/13/20 Range/Units 13:55 15:33 WBC 7.0 Corrected WBC RBC 5.10 Hgb 15.0 Hct 45.8 MCV 89.8 MCH 29.4 MCHC 32.8 RDW 12.5 Plt Count 218 MPV 9.7 Gran % Neut % (Auto) 65.0 Lymph % (Auto) 24.6 [place] % (Auto) 9.1 Eos % (Auto) 0.9 Baso % (Auto) 0.3 Neut # (Auto) 4.6 Lymph # (Auto) 1.7 [place] # (Auto) 0.6 Eos # (Auto) 0.1 Baso # (Auto) 0.0 Absolute Gran (aut o) Nucleated RBC % (a uto) 0 Nucleated RBCs # 0.0 Sodium (136-145) mmol/L Potassium (3.5-5.1) mmol/L Chloride (98-107) mmol/L Carbon Dioxide (22-29) mmol/L Anion Gap (5-19) BUN (8-23) mg/dL Creatinine (0.5-0.9) mg/dL GFR Calculation (90-130) mL/min Glucose (65-115) mg/dL Calculated Osmolal ity (285-295) mOsm/k g Calcium (8.5-10.5) mg/dL Total Bilirubin (0.15-1.2) mg/dL AST (0-32) U/L ALT (0-33) U/L Alkaline Phosphata se (35-105) IU/L Troponin T Baselin e (0-10) ng/L Troponin T 120 Min [place] 10.30 H (0-10) ng/L Delta Troponin T 0.30 (0-10) ABS# Total Protein (6.6-8.7) g/dL Albumin (3.5-5.2) g/dL Globulin (1.3-4.6) g/dL Imaging Data^: CT Head: Attestation: I personally reviewed and interpreted this imaging study as follows: Radiologist's impression: [address] [address] [address] Scan Report Signed Patient: Ro Lopez Unit #: [id number] : 1960 Age/Sex: 60 / F ADM Date: 03/13/20 Loc: ER Room/Bed: Attending Dr: Ordering Provider/Ordering MD: Jessica Key MD Date of Service: 03/13/20 Procedure(s): CT head wo con* [id number] Accession Number(s): [id number] Report Number: [id number] WS: [id number] CT HEAD NONCONTRAST HISTORY: confusion TECHNIQUE: Contiguous axial imaging performed through the brain in 2.5 mm imaging. Bone and soft tissue windows. Sagittal and coronal reformats reviewed. All CT scans at [facility] use at least one of these dose optimization techniques: automated exposure control; mA and/or kV adjustment per patient size (includes targeted exams where dose is matched to clinical indication); or iterative reconstruction. DLP: 741.03 mGy.cm COMPARISON: 07/06/2019 No acute intracranial hemorrhage, midline shift or mass effect. Mild atrophy bilaterally. Atrophy is predominantly involving the frontal and temporal lobes and is symmetric. Minimal chronic microvascular ischemic changes. No prior infarcts. Ventricles: Normal size with no hydrocephalus. Paranasal sinuses: Mucoperiosteal thickening in the LEFT sphenoid sinus. Mastoid air cells: Well pneumatized. Calvarium and scalp: Skull is intact with no soft tissue edema or swelling. CT/CT head wo con* [id number] IMPRESSION: 1. Mild bilateral frontotemporal atrophy is similar to the prior study. 2. No acute intracranial hemorrhage or edema. EKG Data^: EKG 1: Attestation: I personally reviewed and interpreted this EKG as follows: EKG interpretation date: 03/13/20 EKG interpretation time: 13:45 Interpretation: Normal sinus rhythm heart rate [address] elevation incomplete right bundle branch block T wave inversion in 3 and aVF unchanged from 527. Discharge Plan Discharge Patient Disposition: Home, Self-Care Clinical Impression: Chest pain Qualifiers: Chest pain type: unspecified Qualified Code(s): R07.9 - Chest pain, unspecified Condition: Stable Prescriptions: No Action amlodipine 2.5 mg tablet 2.5 mg PO BID RF: 0 fluticasone propionate [Allergy Relief (fluticasone)] 50 mcg/actuation spray,suspension 1 spray INTRANASAL DAILY RF: 0 nitroglycerin [Nitrostat] 0.4 mg tablet, sublingual 0.4 mg SUBLINGUAL Q5M PRN (Reason: Chest Pain) RF: 0 atorvastatin 40 mg tablet 40 mg PO DAILY 90 Days Qty: 90 RF: 3 clopidogrel 75 mg tablet 75 mg PO DAILY 90 Days Qty: 90 RF: 3 trazodone 100 mg tablet 100 mg PO BEDTIME RF: 0 metoprolol tartrate 25 mg tablet 12.5 mg PO BID RF: 0 Discharge Orders: Discharge Order (Routine); Ordered 03/13/20 Ordered By: Jessica Key Referrals: Hellen Dior MD [Primary Care Provider] - Discharge Diet: Advance as tolerated Discharge Activity: Resume usual activity Patient Instructions: Chest Pain (ED) Discharge Date/Time: 03/13/20 16:31 Coding Level of Care Code ED Change Release Manager for Nico Fwd Exam Comprehensive
[2020-03-13 13:42] VITALS: RESP 18
[2020-03-13] MEDS: LORazepam 2 mg/mL INJ 1 mL 1 MG IVP (13:46)
[2020-03-13 14:01] LABS: Alanine Aminotransferase 16 U/L (0-33); Albumin Level 4.7 g/dL (3.5-5.2); Alkaline Phosphatase 97 IU/L (35-105); Anion Gap 19.9 (5-19); Aspartate Amino Transferase 25 U/L (0-32); Blood Urea Nitrogen 10 mg/dL (8-23); Calcium 10.4 mg/dL (8.5-10.5); Carbon Dioxide 22 mmol/L (22-29); Chloride 103 mmol/L (98-107); Creatinine Clr Calc Pharmacy 72.5606; Globulin 3.4 g/dL (1.3-4.6); Glomerular Filtration Rate 63.9 mL/min (90-130); Glucose 89 mg/dL (65-115); Osmolality Calculated 287 mOsm/kg (285-295); Potassium 3.9 mmol/L (3.5-5.1); Sodium 141 mmol/L (136-145); Total Bilirubin 0.8 mg/dL (0.15-1.2); Total Protein 8.1 g/dL (6.6-8.7)
[2020-03-13 14:02] LABS: Basophils % 0.3 %; Eosinophils # 0.1 10^3/uL (0.0-0.8); Eosinophils % 0.9 %; Hematocrit 45.8 % (37.0-47.0); Lymphocytes # 1.7 10^3/uL (0.8-4.8); Lymphocytes % 24.6 %; Mean Corpuscular HGB Conc 32.8 g/dL (30.0-36.0); Mean Corpuscular Hemoglobin 29.4 pg (28.0-34.0); Mean Corpuscular Volume 89.8 fL (81-99); Mean Platelet Volume 9.7 fL (7.4-10.4); Monocytes # 0.6 10^3/uL (0.2-0.9); Monocytes % 9.1 %; Neutrophils # 4.6 10^3/uL (1.8-7.7); Nucleated Red Blood Cells % 0 %; Platelet Count 218 10^3/cmm (130-400); Red Cell Distribution Width 12.5 % (12.1-15.1)
[2020-03-13 14:03] LABS: Troponin(5th) Baseline 10 ng/L (0-10)
[2020-03-13 14:42] VITALS: BP 158/100; PULSE 62; RESP 20; O2SAT 99
[2020-03-13 15:00] VITALS: RESP 20
--- NOTE | 2020-03-13 15:21 | ECG_ITS ---
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 Measurements Intervals [place] Rate: 63 P: 58 CT: 157 QRS: 43 QRSD: 109 T: -9 QT: 426 QTc: 437 Interpretive Statements SINUS RHYTHM INCOMPLETE RIGHT BUNDLE BRANCH BLOCK [90+ ms QRS DURATION, TERMINAL R IN V1/V2, 40+ ms S IN I/aVL/V4/V5/V6] PROBABLE LATERAL MYOCARDIAL INFARCTION , PROBABLY OLD [35 ms Q WAVE IN I/aVL/V5/V6] INFERIOR MYOCARDIAL INFARCTION , OF INDETERMINATE AGE [40+ ms Q WAVE AND/OR ST/T ABNORMALITY IN II/aVF] Compared to ECG 03/13/2020 13:45:18 No significant changes Electronically Signed On 03-13-2020 21:46:59 CDT by Leonel Casillas M.D. [email or web address][email or web address] Enterprisesummc holmes countyQuantancemercy health tiffin hospital.[employer]/store/OM/[id number]
[2020-03-13 16:00] VITALS: BP 154/100; PULSE 59; RESP 18; O2SAT 97
[2020-03-13 16:29] VITALS: BP 154/100; PULSE 59; RESP 18; O2SAT 97
== END 2020-03-13 16:31 | disposition home or self-care (01) ==
PROVIDERS: Emergency Provider Emergency Medicine; PCP Family Medicine
DX: R07.9 Chest pain, unspecified (principal); Z79.02 Long term (current) use of antithrombotics/antiplatelets; Z86.73 Personal history of transient ischemic attack (TIA), and cerebral infarction without residual deficits; I10 Essential (primary) hypertension; E78.5 Hyperlipidemia, unspecified; I25.2 Old myocardial infarction; Z95.1 Presence of aortocoronary bypass graft; F17.210 Nicotine dependence, cigarettes, uncomplicated
CPT/HCPCS: 12345; 36415; 70450; 71045; 80053; 84484; 85025; 93005; 96374; 96375; 99283; 99284; J2060

== ENCOUNTER → 2020-07-03 10:46 | Outpatient (BNVA) | payer SELFPAY | PROVIDERS: PCP Family Medicine; Visit Provider Family Medicine | DX: E78.2 Mixed hyperlipidemia (principal); I10 Essential (primary) hypertension | CPT/HCPCS: 80053; 80061; 83721 ==

== ENCOUNTER → 2021-03-01 10:30 | Outpatient (BNVA) | payer SELFPAY | PROVIDERS: PCP Family Medicine; Visit Provider Family Medicine | DX: I25.10 Atherosclerotic heart disease of native coronary artery without angina pectoris (principal); F51.01 Primary insomnia; N18.2 Chronic kidney disease, stage 2 (mild); J44.9 Chronic obstructive pulmonary disease, unspecified | CPT/HCPCS: 80053; 80061; 85025 ==

== ENCOUNTER 2021-04-04 16:22 | Emergency (ER) | payer SELFPAY ==
[2021-04-04 16:36] VITALS: BP 147/90; PULSE 73; RESP 18; TEMP 36.9; O2SAT 98; BMI 29.0
--- NOTE | 2021-04-04 16:41 | ECG_ITS ---
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 Measurements Intervals [place] Rate: 70 P: 70 [place]: 147 QRS: 72 QRSD: 104 T: -5 QT: 418 QTc: 452 Interpretive Statements SINUS RHYTHM LEFT ATRIAL ENLARGEMENT [-0.15mV P WAVE IN V1/V2] INCOMPLETE RIGHT BUNDLE BRANCH BLOCK [90+ ms QRS DURATION, TERMINAL R IN V1/V2, 40+ ms S IN I/aVL/V4/V5/V6] INFERIOR MYOCARDIAL INFARCTION [40+ ms Q WAVE AND/OR ST/T ABNORMALITY IN II/aVF], OF INDETERMINATE AGE POSSIBLE ANTEROLATERAL MYOCARDIAL INFARCTION [30 ms Q WAVE IN I/aVL/V3-V6], OF INDETERMINATE AGE Compared to ECG 03/13/2020 15:56:26 Atrial abnormality now present Myocardial infarct finding still present Electronically Signed On 04-05-2021 14:39:56 CDT by Leonel Casillas M.D. [email or web address] [email or web address].[employer]/store/ov/[id number]
== END 2021-04-04 19:45 | disposition left against medical advice (07) ==
PROVIDERS: PCP Family Medicine
DX: R07.9 Chest pain, unspecified (principal); R03.0 Elevated blood-pressure reading, without diagnosis of hypertension; Z53.21 Procedure and treatment not carried out due to patient leaving prior to being seen by health care provider
CPT/HCPCS: 93005

== ENCOUNTER → 2021-06-05 12:27 | Outpatient (BNVA) | payer SELFPAY | PROVIDERS: PCP Family Medicine; Visit Provider Nurse Practitioner Family | DX: Z20.822 Contact with and (suspected) exposure to COVID-19 (principal) | CPT/HCPCS: 87635 ==

== ENCOUNTER → 2022-05-15 18:12 | Outpatient (BNVA) | payer SELFPAY | PROVIDERS: PCP Family Medicine; Visit Provider Emergency Medicine | DX: R30.0 Dysuria (principal); N30.01 Acute cystitis with hematuria | CPT/HCPCS: 81000 ==

== ENCOUNTER → 2023-07-23 14:12 | Outpatient (BNVA) | payer SELFPAY | PROVIDERS: PCP Family Medicine; Visit Provider Family Medicine | DX: I10 Essential (primary) hypertension (principal); E78.2 Mixed hyperlipidemia | CPT/HCPCS: 80053; 80061 ==

== ENCOUNTER 2023-09-04 09:09 | Emergency (ER) | payer SELFPAY ==
[2023-09-04] VITALS (9 sets, daily range): BP systolic 138–166; BP diastolic 79–115; PULSE 71–92; RESP 18–20; TEMP 36.6; O2SAT 93–98; BMI 27.3
--- NOTE | 2023-09-04 09:29 | ED_ITS ---
HPI - URI/Sore Throat 2 General: Chief Complaint: Upper Respiratory Infection Stated Complaint: cough, body aches, sob Time Seen by Provider: 09/04/23 09:25 History of Present Illness: Patient presents to the ER with approximately 6 weeks or so of shortness of breath congestion and cough. Patient was seen by the urgent care few weeks ago given antibiotic and steroid treatment with no relief. Patient says she has been having green productive phlegm. Patient does have Atrovent inhaler at home. Patient is a current every day smoker. Patient does not use oxygen. Review of Systems 2 General: Reports: 10 or more systems reviewed and unremarkable except in HPI and below PFSH ED 2 PFSH: Medical History COPD (chronic obstructive pulmonary disease) CKD (chronic kidney disease) ANALISA (generalized anxiety disorder) Insomnia Anxiety neurosis Migraine headache HTN (hypertension) intolerant of carvedilol ASHD (arteriosclerotic heart disease) Hyperlipidemia Carotid stenosis, bilateral 16-40% left stenosis, last imaged 07/06/2019 CVA (cerebral vascular accident) Myocardial infarction Surgical History S/P hysterectomy S/P appendectomy S/P CABG (coronary artery bypass graft) Four-vessel bypass June 2018 [facility] This included a left internal mammary to the LAD and single vein graft to the circumflex, right coronary and diagonal branch. 4 weeks later she had a myocardial infarction which involve closure of the graft to the circumflex In September [address] Shannon revealed [place] circumflex occlusion with good collateral blood flow Family History Father Cancer LUNG Other CAD (coronary artery disease) Hypertension Social History Smoking and tobacco/nicotine status: current every day tobacco/nicotine user cigarettes [ Other cigarette details: 1 to 2 cigarettes a day] Alcohol intake: never Substance/Drug Use: never Household members: spouse and family Housing: House Marital status: Female Reproductive History: Spontaneous abortions: No Physical Exam 2 Const: COMMON NORMALS: no acute distress, average body habitus, patient oriented x3, no limitations, healthy appearing, alert and well nourished HENMT: COMMON NORMALS: normocephalic, atraumatic, hearing grossly normal bilaterally, external ears normal, Normal external nose present, moist oral mucous membranes and oropharynx normal HEAD & SCALP: normocephalic and atraumatic NOSE: Normal external nose present EXTERNAL EAR: Yes external ears normal Eye: COMMON NORMALS: Equal, round and reactive pupils present, EOMs intact bilaterally, conjunctivae normal and no scleral icterus CONJUNCTIVA: Yes conjunctivae normal PUPIL: Yes Equal, round and reactive pupils present Neck/C-Spine: COMMON NORMALS: no JVD Chest: COMMONS NORMALS: normal inspection of the chest and normal palpation of entire chest wall Resp: COMMON NORMALS: normal respiratory effort, No retractions and No use of accessory muscles; negative for clear to auscultation bilaterally (Diffuse wheezing throughout) AUSCULTATION: not clear to auscultation bilaterally (Diffuse wheezing throughout) Cardio: COMMON NORMALS: no JVD, regular rate, regular rhythm, S1 normal heart sound present, S2 normal heart sound present, No gallops present (Cardio), No clicks present (Cardio), No murmurs present (Cardio) and No rub (Cardio) R ATE: regular rate RHYTHM: regular rhythm HEART SOUNDS: S1 normal heart sound present and S2 normal heart sound present GI: COMMON NORMALS: Normal to inspection, nondistended, normoactive bowel sounds present, Soft to palpation, non-tender, No hepatosplenomegaly present and no masses PALPATION: Yes Soft to palpation and Yes No hepatosplenomegaly present Neuro: COMMON NORMALS: patient oriented x3 SENSORIUM/ORIENTATION: Yes alert Course 2 Vital Signs: Vital signs: Vital Signs Temperature 97.9 F 09/04/23 09:15 Pulse Rate 81 09/04/23 11:09 Respiratory Rate 20 H 09/04/23 10:26 Blood Pressure 158/115 09/04/23 11:09 Pulse Oximetry 96 09/04/23 11:09 Oxygen Delivery Me thod Room Air 09/04/23 11:09 MDM - URI/Sore Throat Medical Decision Making Patient had lab work done and chest x-ray which was essentially unremarkable. She patient is negative for influenza and COVID. Patient is doing significantly better. Patient will be discharged on DuoNeb and Pulmicort and should follow-up with her PCP in approximately 7 days. Lab Data 09/04/23 09:43 09/04/23 09:43 Radiology Impressions Chest X-Ray 09/04/23 09:33 IMPRESSION: No acute cardiopulmonary process. Laboratory Results WBC 10.43 10^3/uL (3.29-11.43) 09/04/23 09:43 RBC 5.24 10^6/uL (3.85-5.65) 09/04/23 09:43 Hgb 15.70 g/dL (11.27-16.99) 09/04/23 09:43 Hct 47.0 % (36-47) 09/04/23 09:43 MCV 89.7 fl (85-98) 09/04/23 09:43 MCH 30.0 pg (27-33) 09/04/23 09:43 MCHC 33.4 g/dL (30-55) 09/04/23 09:43 RDW 12.6 % (12.1-15.1) 09/04/23 09:43 Plt Count 293 10^3/cmm (157-399) 09/04/23 09:43 MPV 9.0 fL (7.4-10.4) 09/04/23 09:43 Neut % (Auto) 75.3 % 09/04/23 09:43 Lymph % (Auto) 14.3 % 09/04/23 09:43 [place] % (Auto) 8.6 % 09/04/23 09:43 Eos % (Auto) 1.0 % 09/04/23 09:43 Baso % (Auto) 0.4 % 09/04/23 09:43 Neut # (Auto) 7.86 10^3/uL (1.8-7.7) H 09/04/23 09:43 Lymph # (Auto) 1.5 10^3/uL (0.8-4.8) 09/04/23 09:43 [place] # (Auto) 0.9 10^3/uL (0.2-0.9) 09/04/23 09:43 Eos # (Auto) 0.1 10^3/uL (0.0-0.8) 09/04/23 09:43 Baso # (Auto) 0.0 10^3/uL (0.0-0.1) 09/04/23 09:43 Nucleated RBC % (auto) 0 % 09/04/23 09:43 Nucleated RBCs # 0.0 /100WBC 09/04/23 09:43 Sodium 139 mmol/L (136-145) 09/04/23 09:43 Potassium 3.5 mmol/L (3.5-5.1) 09/04/23 09:43 Chloride 102 mmol/L (98-107) 09/04/23 09:43 Carbon Dioxide 23 mmol/L (22-29) 09/04/23 09:43 Anion Gap 17.5 (5-19) 09/04/23 09:43 BUN 7 mg/dL (8-23) L 09/04/23 09:43 Creatinine 0.8 mg/dL (0.5-0.9) 09/04/23 09:43 GFR Calculation 72.4 mL/min (90-130) L 09/04/23 09:43 Glucose 112 mg/dL (65-115) 09/04/23 09:43 Calculated Osmolality 287 mOsm/kg (285-295) 09/04/23 09:43 Calcium 9.2 mg/dL (8.5-10.5) 09/04/23 09:43 Total Bilirubin 0.4 mg/dL (0.15-1.2) 09/04/23 09:43 AST 11 U/L (0-32) 09/04/23 09:43 ALT 7 U/L (0-33) 09/04/23 09:43 Alkaline Phosphatase 120 U/L (35-105) H 09/04/23 09:43 Total Protein 7.9 g/dL (6.6-8.7) 09/04/23 09:43 Albumin 4.2 g/dL (3.5-5.2) 09/04/23 09:43 Globulin 3.7 g/dL (1.3-4.6) 09/04/23 09:43 Procalcitonin 0.03 ng/mL (0-0.5) 09/04/23 09:43 Influenza Type A Ag negative (Negative) 09/04/23 10:37 Influenza Type B Ag negative (Negative) 09/04/23 10:37 SARS-CoV-2 Ag (Rapid) negative (Negative) 09/04/23 10:37 All radiology interpretation(s) finalized by discharge Discharge Plan Discharge Patient Disposition: Home Clinical Impression: COPD (chronic obstructive pulmonary disease) Condition: Stable Prescriptions: No Action hydralazine 10 mg tablet 10 mg PO DAILY PRN (Reason: hypertension) Qty: 30 1RF Rx Instructions: For BP> 150/90 mm Hg amlodipine 5 mg tablet 5 mg PO BID 90 Days Qty: 180 3RF Rx Instructions: 340B atorvastatin 80 mg tablet 80 mg PO DAILY 90 Days Qty: 90 3RF metoprolol tartrate 25 mg tablet 12.5 mg PO DAILY 90 Days Qty: 90 3RF nitroglycerin [Nitrostat] 0.4 mg tablet, sublingual 0.4 mg SUBLINGUAL Q5M PRN (Reason: Chest Pain) Qty: 25 2RF Aspir-81 81 mg Tablet,Delayed Release (Dr/Ec) 81 mg PO DAILY PRN (Reason: UNKNOWN) clopidogrel 75 mg tablet 75 mg PO DAILY trazodone 100 mg tablet 200 mg PO BEDTIME Rx Instructions: 340B Lasix 20 mg tablet 10 - 20 mg PO QAM PRN (Reason: leg swelling) Atrovent HFA 17 mcg/actuation HFA aerosol inhaler 2 puff inhalation Q8H Discharge Orders: Discharge ED (Routine); Ordered 09/04/23 Ordered By: Kar Sosa Referrals: Hellen Dior MD [Primary Care Provider] - 1 week Patient Instructions: Wheezing (ED), COPD (Chronic Obstructive Pulmonary Disease) (DC) Activity Restrictions/Additional Instructions: Your test were negative for influenza COVID and pneumonia. Is thought you had a COPD/asthma flareup. You will be discharged on Pulmicort and DuoNeb treatments and he should follow-up with your family practice physician in the next 7 to 10 days for further evaluation and treatment. Coding Level of Care Code ED Hand Coke Drawer for Nico Lazo
--- NOTE | 2023-09-04 09:33 | XRR_ITS ---
PROCEDURE INFORMATION: Exam: XR Chest Exam date and time: 09/04/2023 9:49 AM Age: 63 years old Clinical indication: Cough; Additional info: Cough congestion TECHNIQUE: Imaging protocol: Radiologic exam of the chest. Views: 1 view. Total images: 1 COMPARISON: CR XR chest 1V portable [id number] 03/13/2020 3:34 PM FINDINGS: Lungs: Unremarkable. No consolidation. Pleural spaces: Unremarkable. No pleural effusion. No pneumothorax. Heart/Mediastinum: Prior coronary artery bypass grafting. Bones/joints: Unremarkable. XR/XR chest 1V portable [id number] IMPRESSION: No acute cardiopulmonary process.
[2023-09-04 09:52] LABS: Basophils % 0.4 %; Eosinophils # 0.1 10^3/uL (0.0-0.8); Lymphocytes # 1.5 10^3/uL (0.8-4.8); Lymphocytes % 14.3 %; Mean Corpuscular HGB Conc 33.4 g/dL (30-55); Mean Corpuscular Volume 89.7 fl (85-98); Monocytes # 0.9 10^3/uL (0.2-0.9); Monocytes % 8.6 %; Neutrophils # 7.86 10^3/uL (1.8-7.7); Neutrophils % 75.3 %; Nucleated Red Blood Cells % 0 %; Platelet Count 293 10^3/cmm (157-399); Red Blood Count 5.24 10^6/uL (3.85-5.65); Red Cell Distribution Width 12.6 % (12.1-15.1); White Blood Count 10.43 10^3/uL (3.29-11.43)
[2023-09-04 10:12] LABS: Alanine Aminotransferase 7 U/L (0-33); Albumin Level 4.2 g/dL (3.5-5.2); Alkaline Phosphatase 120 U/L (35-105); Anion Gap 17.5 (5-19); Aspartate Amino Transferase 11 U/L (0-32); Blood Urea Nitrogen 7 mg/dL (8-23); Calcium 9.2 mg/dL (8.5-10.5); Carbon Dioxide 23 mmol/L (22-29); Chloride 102 mmol/L (98-107); Globulin 3.7 g/dL (1.3-4.6); Glomerular Filtration Rate 72.4 mL/min (90-130); Glucose 112 mg/dL (65-115); Osmolality Calculated 287 mOsm/kg (285-295); Potassium 3.5 mmol/L (3.5-5.1); Sodium 139 mmol/L (136-145); Total Bilirubin 0.4 mg/dL (0.15-1.2); Total Protein 7.9 g/dL (6.6-8.7)
[2023-09-04 10:17] LABS: Procalcitonin 0.03 ng/mL (0-0.5)
[2023-09-04] MEDS: ipratropium-albuterol 3 mL Neb INHALATION (10:26)
[2023-09-04 10:58] LABS: Influenza A by IFA negative (Negative); Influenza B by IFA negative (Negative)
[2023-09-04 10:59] LABS: SARS Covid-2 Antigen negative (Negative)
== END 2023-09-04 11:55 | disposition home or self-care (01) ==
PROVIDERS: Emergency Provider Emergency Medicine; PCP Family Medicine
DX: J44.9 Chronic obstructive pulmonary disease, unspecified (principal); Z79.82 Long term (current) use of aspirin; Z79.02 Long term (current) use of antithrombotics/antiplatelets; Z11.52 Encounter for screening for COVID-19; F17.210 Nicotine dependence, cigarettes, uncomplicated; I12.9 Hypertensive chronic kidney disease with stage 1 through stage 4 chronic kidney disease, or unspecified chronic kidney disease; N18.9 Chronic kidney disease, unspecified; E78.5 Hyperlipidemia, unspecified; Z86.73 Personal history of transient ischemic attack (TIA), and cerebral infarction without residual deficits; I25.2 Old myocardial infarction; Z95.1 Presence of aortocoronary bypass graft
CPT/HCPCS: 71045; 80053; 84145; 85025; 87426; 87804; 94640; 99284

== ENCOUNTER → 2024-01-09 11:31 | Outpatient (BNVA) | payer SELFPAY | PROVIDERS: PCP Family Medicine; Visit Provider Emergency Medicine | DX: R30.0 Dysuria (principal) | CPT/HCPCS: 81000; 87077; 87086; 87184 ==

== ENCOUNTER 2024-09-08 11:06 | Emergency (ER) | payer SELFPAY ==
--- NOTE | 2024-09-08 11:07 | XRR_ITS ---
PROCEDURE INFORMATION: Exam: XR Chest Exam date and time: 09/08/2024 11:28 AM Age: 64 years old Clinical indication: Pain; Chest pressure; Prior surgery; Surgery date: 6+ months; Surgery type: Cabg; Additional info: Cp TECHNIQUE: Imaging protocol: Radiologic exam of the chest. Views: 1 view. COMPARISON: CR XR chest 1V portable [id number] 09/04/2023 9:49 AM FINDINGS: Lungs: Unremarkable. No consolidation or mass. Pleural spaces: Unremarkable. No pleural effusion. No pneumothorax. Heart/Mediastinum: Unremarkable. No cardiomegaly. Bones/joints: Sternal sutures are noted. XR/XR chest 1V portable [id number] IMPRESSION: No acute findings.
--- NOTE | 2024-09-08 11:12 | ECG_ITS ---
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 Measurements Intervals [place] Rate: 80 P: 71 UT: 146 QRS: 85 QRSD: 102 T: 7 QT: 363 QTc: 420 Interpretive Statements SINUS RHYTHM LEFT ATRIAL ENLARGEMENT [-0.15mV P-WAVE IN V1/V2] INCOMPLETE RIGHT BUNDLE BRANCH BLOCK [90+ ms QRS DURATION, TERMINAL R IN V1/V2, 40+ ms S IN I/aVL/V4/V5/V6] INFERIOR MYOCARDIAL INFARCTION , OF INDETERMINATE AGE [40+ ms Q WAVE AND/OR ST/T ABNORMALITY IN II/aVF] ANTEROLATERAL MYOCARDIAL INFARCTION , OF INDETERMINATE AGE [40+ ms Q WAVE IN I/aVL/V3-V6] Compared to ECG 04/04/2021 16:47:15 No significant changes Electronically Signed On 09-09-2024 12:30:53 MATTRESS STUFFER by Esteban Bansal M.D. [email or web address]
[2024-09-08 11:23] VITALS: BP 133/86; PULSE 89; TEMP 36.8; O2SAT 95
[2024-09-08 11:49] LABS: Basophils % 0.4 %; Eosinophils # 0.1 10^3/uL (0.0-0.8); Eosinophils % 0.8 %; Lymphocytes % 17.7 %; Mean Corpuscular HGB Conc 33.3 g/dL (30-55); Mean Corpuscular Hemoglobin 29.7 pg (27-33); Mean Corpuscular Volume 89.3 fl (85-98); Mean Platelet Volume 9.1 fL (7.4-10.4); Monocytes # 0.7 10^3/uL (0.2-0.9); Monocytes % 6.4 %; Neutrophils # 8.26 10^3/uL (1.8-7.7); Neutrophils % 74.3 %; Nucleated Red Blood Cells % 0 %; Platelet Count 302 10^3/cmm (157-399); Red Blood Count 5.15 10^6/uL (3.85-5.65); Red Cell Distribution Width 13.2 % (12.1-15.1); White Blood Count 11.11 10^3/uL (3.29-11.43)
[2024-09-08 12:11] LABS: Alanine Aminotransferase 8 U/L (0-33); Albumin Level 4.4 g/dL (3.5-5.2); Alkaline Phosphatase 128 U/L (35-105); Anion Gap 18.6 (5-19); Aspartate Amino Transferase 12 U/L (0-32); Blood Urea Nitrogen 8 mg/dL (8-23); Calcium 9.2 mg/dL (8.5-10.5); Carbon Dioxide 24 mmol/L (22-29); Chloride 99 mmol/L (98-107); Creatinine Clr Calc Pharmacy 77.5501; Globulin 2.8 g/dL (1.3-4.6); Glomerular Filtration Rate 72.2 mL/min (90-130); Glucose 132 mg/dL (65-115); Lipase 45 U/L (13-60); Osmolality Calculated 286 mOsm/kg (285-295); Potassium 3.6 mmol/L (3.5-5.1); Sodium 138 mmol/L (136-145); Total Bilirubin 0.7 mg/dL (0.15-1.2); Total Protein 7.2 g/dL (6.6-8.7); Troponin(5th) Baseline 9 ng/L (0-10)
[2024-09-08 12:32] LABS: INR 0.98 (0.8-1.2)
--- NOTE | 2024-09-08 13:07 | ECG_ITS ---
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 Measurements Intervals [place] Rate: 79 P: 74 MO: 142 QRS: 91 QRSD: 103 T: 19 QT: 408 QTc: 469 Interpretive Statements SINUS RHYTHM POSSIBLE LEFT ATRIAL ENLARGEMENT [-0.1mV P-WAVE IN V1/V2] BORDERLINE RIGHT AXIS DEVIATION [QRS AXIS > 90] INCOMPLETE RIGHT BUNDLE BRANCH BLOCK [90+ ms QRS DURATION, TERMINAL R IN V1/V2, 40+ ms S IN I/aVL/V4/V5/V6] ANTERIOR MYOCARDIAL INFARCTION , OF INDETERMINATE AGE [40+ ms Q WAVE AND/OR ST/T ABNORMALITY IN V3/V4] INFERIOR MYOCARDIAL INFARCTION , OF INDETERMINATE AGE [40+ ms Q WAVE AND/OR ST/T ABNORMALITY IN II/aVF] Compared to ECG 09/08/2024 11:12:26 No significant changes Electronically Signed On 09-09-2024 12:35:06 SENIOR SEARCH MARKETING ANALYST by Esteban Bansal M.D. [email or web address]
[2024-09-08] MEDS: benzonatate 100 mg Capsule PO (13:55)
[2024-09-08 14:26] LABS: Troponin 5 2HR 6.92 ng/L (0-10)
[2024-09-08 14:28] LABS: Troponin 5 2HR Delta -2.08 ABS# (0-10)
[2024-09-08 14:44] LABS: Covid PCR NEGATIVE (Negative); Influenza A NEGATIVE (Negative); Influenza B NEGATIVE (Negative); Respiratory Syncytial Virus Ce NEGATIVE (Negative)
--- NOTE | 2024-09-08 15:02 | ED_ITS ---
HPI - URI/Sore Throat 2 General: Chief Complaint: Upper Respiratory Infection Stated Complaint: chest pain Time Seen by Provider: 09/08/24 13:22 Source: patient Mode of arrival: ambulatory Limitations: no limitations History of Present Illness: Patient is a 64-year-old female with past medical history of CT, CABG, and COPD who presents the emergency department with upper respiratory symptoms including a cough and pleuritic chest pain for the past week. Patient unknown of any specific sick contact exposure. Notes that she had a heart attack and subsequent CABG greater than 5 years ago, this pain that she is having does not feel anything similar however she did take a couple of nitro last night that did not seem to help her pain. Primarily concerned about the cough, she has tried numerous [id number] medications but nothing has worked. Notes that the pain in her chest is diffuse and specifically worsened by coughing. She does not feel overtly short of breath. Does note intermittent fevers as well as overall malaise and bodyaches. Vitals stable at this time. She is stating that initially her cough was productive of sputum, has dried up. Onset (ago): week(s) Consistency: constant Severity: moderate Able to tolerate fluids by mouth: Yes Exacerbating factors: deep breaths Associated symptoms: Reports chills, chest pain and fever(s); Deny abdominal pain, diarrhea, ear or mastoid pain, headache(s), nausea or vomiting Treatments prior to arrival: cold medicine Related Data Home Medications Medication Instructions Recorded Confirmed aspirin 81 mg tablet,delayed 81 mg PO DAILY PRN UNKNOWN 09/04/23 01/09/24 release furosemide 20 mg tablet (Lasix) 10 - 20 mg PO QAM PRN leg swelling 09/04/23 01/09/24 ipratropium bromide 17 2 puff inhalation Q8H 09/04/23 01/09/24 mcg/actuation HFA aerosol inhaler (Atrovent HFA) trazodone 100 mg tablet 200 mg PO BEDTIME 09/04/23 01/09/24 Previous Rx's Medication Instructions Recorded amlodipine 5 mg tablet 5 mg PO BID 90 days #180 tabs 07/23/23 atorvastatin 80 mg tablet 80 mg PO DAILY 90 days #90 tabs 07/23/23 metoprolol tartrate 25 mg tablet 12.5 mg (1/2 x 25 mg) PO DAILY 90 07/23/23 days #90 tabs nitroglycerin 0.4 mg sublingual 0.4 mg sublingual Q5M PRN Chest 07/23/23 tablet (Nitrostat) Pain #25 tabs budesonide 1 mg/2 mL suspension 1 mg (2 mL) inhalation DAILY #60 mL 09/04/23 for nebulization (Pulmicort) ipratropium 20 mcg-albuterol 100 1 puff inhalation Q6H #4 grams 09/04/23 mcg/actuation mist for inhalation (Combivent Respimat) pyrantel pamoate 50 mg/mL oral 1,000 mg (20 mL) PO DAILY 3 days 12/19/23 suspension #60 mL qsvlobspeoszrxc-cxvliumzmmdjyke-EZ 5 ml PO Q6H PRN cold symptoms #118 01/09/24 2 mg-30 mg-10 mg/5 mL oral syrup mL (Bromfed DM) ciprofloxacin HCl 500 mg tablet 500 mg PO BID 10 days #20 tabs 01/09/24 prednisone 20 mg tablet 20 mg PO DAILY 5 days #5 tabs 01/09/24 hydralazine 10 mg tablet 10 mg PO DAILY PRN hypertension 02/12/24 #30 tabs clopidogrel 75 mg tablet See Rx Instructions .Route 08/16/24 .COMPLEX #90 tabs benzonatate 100 mg capsule 100 mg PO BID PRN cough #20 caps 09/08/24 doxycycline hyclate 100 mg tablet 100 mg PO BID 10 days #20 tabs 09/08/24 prednisone 20 mg tablet 60 mg (3 x 20 mg) PO ONCE 5 days 09/08/24 #15 tabs Allergies Allergy/AdvReac Type Severity Reaction Status Date / Time amoxicillin Allergy Unknown uK Verified 09/08/24 11:29 Cephalosporins Allergy Unknown Unknown Verified 09/08/24 11:29 hydromorphone [From Dilaudid] Allergy Unknown Unknown Verified 09/08/24 11:29 Penicillins Allergy Unknown uk Verified 09/08/24 11:29 Sulfa (Sulfonamide Allergy Unknown Unknown Verified 09/08/24 11:29 Antibiotics) nitrofurantoin Allergy ALGY-Hives Verified 09/08/24 11:29 [From Macrobid] Review of Systems 2 General: Reports: 10 or more systems reviewed and unremarkable except in HPI and below Const: Reports: fever(s), chills, body aches, fatigue and malaise Eyes: Denies: change in vision ENMT: Denies: throat pain, ear or mastoid pain or nasal discharge Card: Reports: chest pain; Denies: palpitations, swelling of feet/ankles or lightheadedness Resp: Reports: non-productive cough; Denies: dyspnea, productive cough or wheezing GI: Denies: abdominal pain, nausea, vomiting, diarrhea or constipation : Denies: flank pain, difficulty voiding, dysuria or urinary frequency Musc: Denies: neck pain, back pain or joint pain Skin/Breast: Denies: rash Neuro: Denies: headache(s), numbness in extremities or weakness in extremities PFSH ED 2 PFSH: Medical History COPD (chronic obstructive pulmonary disease) CKD (chronic kidney disease) ANALISA (generalized anxiety disorder) Insomnia Anxiety neurosis Migraine headache HTN (hypertension) intolerant of carvedilol ASHD (arteriosclerotic heart disease) Hyperlipidemia Carotid stenosis, bilateral 16-40% left stenosis, last imaged 07/06/2019 CVA (cerebral vascular accident) Myocardial infarction Surgical History S/P hysterectomy S/P appendectomy S/P CABG (coronary artery bypass graft) Four-vessel bypass June 2018 [facility] This included a left internal mammary to the LAD and single vein graft to the circumflex, right coronary and diagonal branch. 4 weeks later she had a myocardial infarction which involve closure of the graft to the circumflex In September [address] Shannon revealed [place] circumflex occlusion with good collateral blood flow Family History Father Cancer LUNG Other CAD (coronary artery disease) Hypertension Social History Smoking and tobacco/nicotine status: current every day tobacco/nicotine user cigarettes [ Other cigarette details: 1 to 2 cigarettes a day] Alcohol intake: never Substance/Drug Use: never Household members: spouse and family Housing: House Marital status: Female Reproductive History: Spontaneous abortions: No Physical Exam 2 Const: COMMON NORMALS: no acute distress and no limitations GENERAL APPEARANCE: cooperative, comfortable and well developed O RIENTATION/CONSCIOUSNESS: Yes awake HENMT: COMMON NORMALS: normocephalic, atraumatic and hearing grossly normal bilaterally HEAD & SCALP: normocephalic and atraumatic Eye: COMMON NORMALS: Equal, round and reactive pupils present, EOMs intact bilaterally and conjunctivae normal CONJUNCTIVA: Yes conjunctivae normal P UPIL: Yes Equal, round and reactive pupils present Neck/C-Spine: COMMON NORMALS: full ROM, supple and no JVD Resp: COMMON NORMALS: normal respiratory effort, No retractions, No use of accessory muscles and clear to auscultation bilaterally AUSCULTATION: clear to auscultation bilaterally Cardio: COMMON NORMALS: no JVD, regular rate, regular rhythm, No clicks present (Cardio), No murmurs present (Cardio) and No rub (Cardio) RATE: r egular rate RHYTHM: regular rhythm Back/Pelvis: COMMON NORMALS: thoracic and lumbar spine normal to inspection, no thoracic nor lumbar tenderness and thoraco-lumbar ROM normal Extremity: COMMON NORMALS: normal to inspection, full ROM and capillary refill normal Skin: COMMON NORMALS: no rashes or lesions noted GENERAL SKIN EXAM: no rashes or lesions noted Course 2 Vital Signs: Vital signs: Vital Signs Temperature 98.3 F 09/08/24 11:23 Pulse Rate 89 09/08/24 11:23 Blood Pressure 133/86 09/08/24 11:23 Pulse Oximetry 95 09/08/24 11:23 Oxygen Delivery Me thod Room Air 09/08/24 11:23 MDM - URI/Sore Throat Medical Decision Making Patient has cardiac history, EKGs were obtained and reviewed with physician, showing no significant change from prior EKGs from 2020. Chest x-ray unremarkable for any signs of focal consolidation or cardiomegaly. All of her labs unremarkable, she was swabbed for COVID flu and RSV this was also negative. Physical exam overall was normal. Her vitals have also been stable. I do not suspect any ACS at this time, due to longevity of symptoms and her normal cardiac workup today which did include normal troponin. I did inform her to closely follow-up with cardiology, however will treat for what I suspect is an acute bronchitis. With her history of COPD will cover with doxycycline and also start short course of steroids. Patient notes significant improvement of her symptoms here after just 1 dose of Tessalon Perles for cough. Strict return precautions given, patient and family in the room endorsed understanding at this time. Lab Data 09/08/24 11:39 09/08/24 11:39 Radiology Impressions Chest X-Ray 09/08/24 11:07 IMPRESSION: No acute findings. Laboratory Results WBC 11.11 10^3/uL (3.29-11.43) 09/08/24 11:39 RBC 5.15 10^6/uL (3.85-5.65) 09/08/24 11:39 Hgb 15.30 g/dL (11.27-16.99) 09/08/24 11:39 Hct 46.0 % (36-47) 09/08/24 11:39 MCV 89.3 fl (85-98) 09/08/24 11:39 MCH 29.7 pg (27-33) 09/08/24 11:39 MCHC 33.3 g/dL (30-55) 09/08/24 11:39 RDW 13.2 % (12.1-15.1) 09/08/24 11:39 Plt Count 302 10^3/cmm (157-399) 09/08/24 11:39 MPV 9.1 fL (7.4-10.4) 09/08/24 11:39 Neut % (Auto) 74.3 % 09/08/24 11:39 Lymph % (Auto) 17.7 % 09/08/24 11:39 Mclean % (Auto) 6.4 % 09/08/24 11:39 Eos % (Auto) 0.8 % 09/08/24 11:39 Baso % (Auto) 0.4 % 09/08/24 11:39 Neut # (Auto) 8.26 10^3/uL (1.8-7.7) H 09/08/24 11:39 Lymph # (Auto) 2.0 10^3/uL (0.8-4.8) 09/08/24 11:39 Mclean # (Auto) 0.7 10^3/uL (0.2-0.9) 09/08/24 11:39 Eos # (Auto) 0.1 10^3/uL (0.0-0.8) 09/08/24 11:39 Baso # (Auto) 0.0 10^3/uL (0.0-0.1) 09/08/24 11:39 Nucleated RBC % (auto) 0 % 09/08/24 11:39 Nucleated RBCs # 0.0 /100WBC 09/08/24 11:39 PT 13.30 SECONDS (12.1-14.9) 09/08/24 11:39 INR 0.98 (0.8-1.2) 09/08/24 11:39 Sodium 138 mmol/L (136-145) 09/08/24 11:39 Potassium 3.6 mmol/L (3.5-5.1) 09/08/24 11:39 Chloride 99 mmol/L (98-107) 09/08/24 11:39 Carbon Dioxide 24 mmol/L (22-29) 09/08/24 11:39 Anion Gap 18.6 (5-19) 09/08/24 11:39 BUN 8 mg/dL (8-23) 09/08/24 11:39 Creatinine 0.8 mg/dL (0.5-0.9) 09/08/24 11:39 GFR Calculation 72.2 mL/min (90-130) L 09/08/24 11:39 Glucose 132 mg/dL (65-115) H 09/08/24 11:39 Calculated Osmolality 286 mOsm/kg (285-295) 09/08/24 11:39 Calcium 9.2 mg/dL (8.5-10.5) 09/08/24 11:39 Total Bilirubin 0.7 mg/dL (0.15-1.2) 09/08/24 11:39 AST 12 U/L (0-32) 09/08/24 11:39 ALT 8 U/L (0-33) 09/08/24 11:39 Alkaline Phosphatase 128 U/L (35-105) H 09/08/24 11:39 Troponin T Baseline 9 ng/L (0-10) 09/08/24 11:39 Troponin T 120 Minute 6.92 ng/L (0-10) 09/08/24 14:05 Delta Troponin T -2.08 ABS# (0-10) L 09/08/24 14:05 Total Protein 7.2 g/dL (6.6-8.7) 09/08/24 11:39 Albumin 4.4 g/dL (3.5-5.2) 09/08/24 11:39 Globulin 2.8 g/dL (1.3-4.6) 09/08/24 11:39 Lipase 45 U/L (13-60) 09/08/24 11:39 Coronavirus (PCR) Negative (Negative) 09/08/24 13:50 Influenza A (PCR) Negative (Negative) 09/08/24 13:50 Influenza Type B (PCR) Negative (Negative) 09/08/24 13:50 RSV (PCR) Negative (Negative) 09/08/24 13:50 All radiology interpretation(s) finalized by discharge Discharge Plan Discharge Patient Disposition: Home Clinical Impression: Acute bronchitis, RAD (reactive airway disease) Condition: Stable Prescriptions: New prednisone 20 mg tablet 60 mg PO ONCE 5 Days Qty: 15 0RF benzonatate 100 mg capsule 100 mg PO BID PRN (Reason: cough) Qty: 20 0RF doxycycline hyclate 100 mg tablet 100 mg PO BID 10 Days Qty: 20 0RF No Action amlodipine 5 mg tablet 5 mg PO BID 90 Days Qty: 180 3RF Rx Instructions: 340B atorvastatin 80 mg tablet 80 mg PO DAILY 90 Days Qty: 90 3RF metoprolol tartrate 25 mg tablet 12.5 mg PO DAILY 90 Days Qty: 90 3RF nitroglycerin [Nitrostat] 0.4 mg tablet, sublingual 0.4 mg SUBLINGUAL Q5M PRN (Reason: Chest Pain) Qty: 25 2RF orpspcutxxlnxic-agthhthsh-IO [Bromfed DM] 2-30-10 mg/5 mL syrup 5 ml PO Q6H PRN (Reason: cold symptoms) Qty: 118 0RF ciprofloxacin HCl 500 mg tablet 500 mg PO BID 10 Days Qty: 20 0RF prednisone 20 mg tablet 20 mg PO DAILY 5 Days Qty: 5 0RF pyrantel pamoate 50 mg/mL suspension 1,000 mg PO DAILY 3 Days Qty: 60 1RF Rx Instructions: may repeat 3-day course once hydralazine 10 mg tablet 10 mg PO DAILY PRN (Reason: hypertension) Qty: 30 1RF Rx Instructions: For BP> 150/90 mm Hg clopidogrel 75 mg tablet See Rx Instructions .ROUTE .COMPLEX Qty: 90 3RF Dose Instruction: TAKE ONE TABLET BY MOUTH EVERY DAY Rx Instructions: TAKE ONE TABLET BY MOUTH EVERY DAY Aspir-81 81 mg Tablet,Delayed Release (Dr/Ec) 81 mg PO DAILY PRN (Reason: UNKNOWN) trazodone 100 mg tablet 200 mg PO BEDTIME Rx Instructions: 340B Lasix 20 mg tablet 10 - 20 mg PO QAM PRN (Reason: leg swelling) Atrovent HFA 17 mcg/actuation HFA aerosol inhaler 2 puff inhalation Q8H Pulmicort 1 mg/2 mL suspension for nebulization 1 mg inhalation DAILY Qty: 60 0RF Combivent Respimat 20-100 mcg/actuation mist 1 puff inhalation Q6H Qty: 4 0RF Discharge Orders: Discharge ED (Routine); Ordered 09/08/24 Ordered By: Trevon Mendenhall Referrals: Ting Escobar MD [Primary Care Provider] - Patient Instructions: Acute Bronchitis (ED), Reactive Airways Disease (ED) Activity Restrictions/Additional Instructions: See attached patient instructions for further education. Antibiotics and steroids as prescribed. Follow-up closely with primary care. Please return with any worsening of your condition. Coding Level of Care Code ED Media Production Support Manager for Nico Lazo
[2024-09-08 15:10] VITALS: BP 145/92; PULSE 84; RESP 16; O2SAT 95
== END 2024-09-08 15:10 | disposition home or self-care (01) ==
PROVIDERS: Emergency Medicine; Emergency Provider Physician Assistant; PCP Family Medicine
DX: J20.9 Acute bronchitis, unspecified (principal); J45.909 Unspecified asthma, uncomplicated; Z79.02 Long term (current) use of antithrombotics/antiplatelets; Z11.52 Encounter for screening for COVID-19; F17.210 Nicotine dependence, cigarettes, uncomplicated; Z95.1 Presence of aortocoronary bypass graft; Z86.73 Personal history of transient ischemic attack (TIA), and cerebral infarction without residual deficits; E78.5 Hyperlipidemia, unspecified; I12.9 Hypertensive chronic kidney disease with stage 1 through stage 4 chronic kidney disease, or unspecified chronic kidney disease; N18.9 Chronic kidney disease, unspecified; J44.9 Chronic obstructive pulmonary disease, unspecified
CPT/HCPCS: 71045; 80053; 83690; 84484; 85025; 85610; 87637; 93005; 93010; 99285